=== PATIENT | male | born 1960 | race Caucasian/White ===

== ENCOUNTER 2021-11-14 14:29 | Emergency (ER) | payer OTHER, SELFPAY ==
[2021-11-14 14:46] VITALS: BP 142/90; PULSE 71; RESP 18; TEMP 37.1; O2SAT 95; BMI 33.5
--- NOTE | 2021-11-14 14:51 | HMH.EDUTC ---
[facility] [place] Disposition Clinical Impression: Poison sachi Disposition: Home, Self-Care Condition on Discharge: Good Instructions: DI for Poison Sachi Allergy Additional Instructions: avoid contact with the offending substance. Don't start the oral steroids until tomorrow. Don't put the topical steroids (triamcinolone) on your face or your groin. Follow up with your regular doctor. GO TO THE ER FOR ANY WORSENING SYMPTOMS OR CONCERNS Prescriptions: methylPREDNISolone [Medrol] 4 mg PO DIRECTED 6 Days #21 packet Transmission Status: Received by [facility] #[id number] Triamcinolone Acetonide 1 applicatio TP TIDP PRN 7 Days #1 gm PRN Reason: Itching Transmission Status: Received by [facility] #[id number] Referrals: Provider,Referral, [Primary Care Provider] - Time of Disposition: 15:26 Medical Decision Making - Medical Records Medical records reviewed: No: I reviewed the patient's medical records. - Ritchie Inquiry Pt receiving controlled substance: No Vital Signs: 11/14/21 14:46 11/14/21 15:52 Temperature 98.8 F 98.5 F Temperature Source Oral Oral Pulse Rate 70 Pulse Rate [Radial] 71 Respiratory Rate 18 18 Blood Pressure 123/79 Blood Pressure [Right Arm] 142/90 H Blood Pressure Mean [Right Arm] 107 Blood Pressure Source [Right Arm] Automatic Cuff Blood Pressure Position Standing Blood Pressure Position [Right Arm] Sitting 02 Sat by Pulse Oximetry 95 Oxygen Delivery Method Room Air Room Air Orders (Tests/Meds): ED MEDICATIONS Discontinued Medications Generic Name Dose Route Start Last Admin Trade Name Freq PRN Reason Stop Dose Admin Methylprednisolone Sodium Succinate 125 mg 11/14/21 15:22 11/14/21 15:26 Methylprednisolone Sod Succ 125mg Vial IM 11/14/21 15:23 125 mg ONCE ONE Administration [facility] [place] HPI - General Stated complaint: poison sachi Time Seen by Provider: 11/14/21 14:51 Mode of Arrival: Ambulatory Source of Information: Patient Limitations: No Limitations Description of Symptoms (Recalled from Triage Doc. by RN): RASH ON ARMS AND LEGS FOR 2 WEEKS HEENT Symptoms (Recalled from RN notes): No Resp Symptoms (Recalled from RN notes): No Skin Symptoms (Recalled from RN notes): Yes MS Symptoms (Recalled from RN notes): No Functional Status (Recalled from RN notes): N/A - History of Present Illness Provider Complaint: For the past 2 weeks he has had a rash on his legs, arms and chest. He was exposed to covid-19 before his symptoms started. He has tried otc medications with not much relief. - Related Data Previous Rx's Medication Instructions Recorded Triamcinolone Acetonide 1 applicatio TP TIDP PRN 7 Days #1 11/14/21 gm methylPREDNISolone [Medrol] 4 mg PO DIRECTED 6 Days #21 11/14/21 packet Allergies Allergy/AdvReac Type Severity Reaction Status Date / Time No Known Allergies Allergy Verified 11/14/21 15:20 - Worker's Comp Is this a Worker's Comp case?: No [facility] History - Hepatitis A Screen Attestation statement:: This patient has been screened for Hepatitis A risk factors. I have reviewed the patient's past medical history: Yes ROS Obtained: Yes All systems reviewed & no additional complaints - Constitutional Constitutional: Denies chills, Denies fever(s) - Eyes Eyes: Denies eye discharge, Denies itchy eyes - ENT Ears, Nose, Mouth, and Throat: Denies sore throat, Denies throat swelling - Cardiovascular Cardiovascular: Denies chest pain - Respiratory Respiratory: Denies chest congestion, Denies cough - Musculoskeletal Musculoskeletal: Denies joint pain - Integumentary/Breasts Skin/Breast: Reports as per HPI, Reports rash - Neurologic Neurologic: Denies tingling/numbness/burning sensations Physical Exam - General General appearance: alert, in no apparent distress - Head Head exam: atraumatic, normocephalic, normal inspection - Eye Eye exam: Present: normal appearance, PERRL
[2021-11-14 15:52] VITALS: BP 123/79; PULSE 70; RESP 18; TEMP 36.9; O2SAT 98
== END 2021-11-14 15:57 | disposition home or self-care (01) ==
PROVIDERS: Emergency Provider Nurse Practitioner Family
DX: L23.7 Allergic contact dermatitis due to plants, except food (principal)
CPT/HCPCS: 96372; 99212; G0463

== ENCOUNTER 2022-05-23 22:54 | Emergency (ER) | payer MEDICAID, SELFPAY ==
[2022-05-23 23:06] VITALS: BP 151/92; PULSE 72; RESP 18; TEMP 36.8; O2SAT 98; BMI 32.4
[2022-05-23 23:30] VITALS: BP 147/94; PULSE 65; O2SAT 100
--- NOTE | 2022-05-23 23:32 | XR_ITS ---
PROCEDURE INFORMATION: Exam: XR Lumbosacral Spine Exam date and time: 05/23/2022 11:29 PM Age: 61 years old Clinical indication: Low back pain TECHNIQUE: Imaging protocol: Radiologic exam of the lumbosacral spine. Views: 2 or 3 views. COMPARISON: No relevant prior studies available. FINDINGS: Bones/joints: Chronic fracture of T12. At L4-L5 there is disc height narrowing, endplate sclerosis. Facet joint arthropathy. No acute fracture or malalignment. Soft tissues: Unremarkable. Other findings: Arthrosclerotic disease. IMPRESSION: No acute findings. Degenerative changes.
--- NOTE | 2022-05-23 23:43 | PC.NURSE ---
pt back in room
--- NOTE | 2022-05-23 23:43 | HMH.EDGENADL ---
Discharge Plan Disposition Patient Disposition: Home, Self-Care Condition: Good Prescriptions Prescriptions: New cyclobenzaprine 10 mg tablet 10 mg PO HS PRN (Reason: muscle spasm) Qty: 7 0RF Referrals Follow up/Referrals: Siobhan De La Vega PA [Primary Care Provider] - See instructions Activity Restrictions/Add. Instructions Additional Instructions/Restrictions: Medication as directed. PCP in 1 to 2 days. Return to ER for fever, chest pain, shortness of breath Clinical Impressions Clinical Impression: Strain of lumbar region Instructions Patient Instructions: DI for Low Back Pain Discharge ED Provider: Josh Finn General Adult HPI General Chief complaint: Back Pain/Injury Stated complaint: ao 05/09 fall, back pain. lac right hand 05/19 Time Seen by Provider: 05/23/22 23:18 Mode of Arrival: Ambulatory Source of Information: Patient Limitations: No Limitations Description of Symptoms (Recalled from ER Triage Doc. by RN): Pt states that he fell two weeks ago while at a trampoline park while jumping on a trampoline. Patient states that when he fell he hit his lower back and head and has had lower back pain since then. Pt also has a laceration on his right hand but states that it is getting better. Denies any fever. History of Present Illness HPI narrative: 61yo M presents the emergency department with complaint of low back pain ongoing for 2 weeks. Reports he was at a trampoline park when he fell and struck his back and the back of his head. Did not seek medical care at that time. He reports he then fell approximately 1 week later while at work and reinjured his back. Reports he feels well sitting up but when he attempts to lie down to sleep at night, he has significant pain. Reports he is unable to get out of bed without assistance. Denies previous back injury. Has been taking [id number] Motrin 800 mg with no improvement. Patient then states he also has not had a bowel movement in 3 weeks and this is atypical for him. reports he is still eating. Reports he is passing gas. Related Data Previous Rx's Medication Instructions Recorded cyclobenzaprine 10 mg tablet 10 mg PO HS PRN muscle spasm #7 05/24/22 tabs Allergies Allergy/AdvReac Type Severity Reaction Status Date / Time No Known Allergies Allergy Verified 05/23/22 23:04 [facility] Disclaimer: The information contained in this section may have been updated after the patient was seen, as this information can be updated by other users. Social History Smoking Status: Current every day smoker alcohol intake: never current occupational status: employed Travel in the last 8 weeks: Inside the [place] ROS Obtained: Yes Systems reviewed as appropriate & no additional complaints except as documented Physical Exam General General appearance: alert and in no apparent distress Head Head exam: atraumatic Neck Neck exam: Present normal inspection, full ROM and trachea midline Respiratory Respiratory exam: Absent respiratory distress Cardiovascular Cardiovascular exam: Present regular rate Abdominal Exam Abdominal exam: Present soft; Absent distention or tenderness Extremities Exam Extremities exam: Present full ROM; Absent tenderness Back Exam Back exam: Present normal inspection and tenderness Back 1 view image: 1. Neurological Exam Neurological exam: Present alert, oriented X3 and CN II-XII intact Psychiatric Psychiatric exam: Present normal affect and normal mood Skin Skin exam: Present warm, dry and intact Medical Decision Making Medical Records Medical records reviewed: Yes I reviewed the patient's medical records. Ritchie Inquiry Pt receiving controlled substance: No Ritchie was queried for this patient: No Vital Signs: 05/23/22 23:06 05/23/22 23:30 Temperature 98.2 F Temperature Source Oral Pulse Rate 65 Pulse Rate [Apical] 72 Respi
--- NOTE | 2022-05-23 23:43 | PC.NURSE ---
pt back from rad
[2022-05-24 00:21] VITALS: BP 145/90; PULSE 65; RESP 18; TEMP 36.6; O2SAT 99
== END 2022-05-24 00:33 | disposition home or self-care (01) ==
PROVIDERS: Emergency Provider Family Medicine; PCP Physician Assistant
DX: S39.012A Strain of muscle, fascia and tendon of lower back, initial encounter (principal); S61.411A Laceration without foreign body of right hand, initial encounter; W19.XXXA Unspecified fall, initial encounter; F17.210 Nicotine dependence, cigarettes, uncomplicated
CPT/HCPCS: 72100; 99283; 99284

== ENCOUNTER → 2022-06-06 10:47 | Outpatient (CLI) | payer MEDICAID, SELFPAY ==
[2022-06-10 23:12] LABS: Hep A Ab, IgM NEGATIVE; Hepatitis B Core Antibody IgM NEGATIVE; Hepatitis B Surface Antigen NEGATIVE; Hepatitis C Antibody <0.1
== END ==
PROVIDERS: PCP Physician Assistant; Visit Provider Physician Assistant
DX: Z79.899 Other long term (current) drug therapy (principal)
CPT/HCPCS: 36415; 80074

== ENCOUNTER → 2022-06-11 15:21 | Outpatient (CLI) | payer MEDICAID, SELFPAY ==
--- NOTE | 2022-06-11 15:21 | MR_ITS ---
PROCEDURE INFORMATION: Exam: MR Lumbar Spine Without Contrast Exam date and time: 06/11/2022 4:19 PM Age: 61 years old Clinical indication: Low back pain TECHNIQUE: Imaging protocol: Magnetic resonance imaging of the lumbar spine without contrast. COMPARISON: CR Lumbar spine 05/23/2022 11:29 PM FINDINGS: Bones/joints: Osseous alignment is normal. No vertebral body compression Spinal cord: Visualized cord, conus medullaris and cauda equina are unremarkable without compression. L1-L2: At L1-L2 there is disc desiccation with mild disc space narrowing but no significant disc bulge or spinal stenosis L2-L3: At L2-L3, there is disc desiccation with mild diffuse disc bulge, mild facet arthropathy and ligamentum flavum hypertrophy producing mild central canal stenosis and mild bilateral neural foramen narrowing L3-L4: At L3-L4, there is disc desiccation with diffuse right eccentric disc bulge, bilateral facet arthropathy and ligamentum flavum hypertrophy producing severe central canal stenosis and moderate bilateral neural foramen narrowing L4-L5: At L4-L5, there is disc desiccation with significant disc space narrowing, diffuse right eccentric disc bulge and mild ligamentum flavum hypertrophy producing moderate central canal stenosis and moderate bilateral neural foramen narrowing L5-S1: At L5-S1, there is disc desiccation with diffuse disc bulge producing mild central canal stenosis and moderate bilateral neural foramen narrowing Soft tissues: Unremarkable. Kidneys and ureters: 3 cm simple appearing left renal cortical cysts noted. IMPRESSION: Overall moderate multilevel degenerative disc disease and associated spinal stenosis with central canal stenosis most severe at the L3-L4 disc level accentuated by bilateral facet arthropathy. No acute abnormality evident
== END ==
PROVIDERS: PCP Physician Assistant; Visit Provider Physician Assistant
DX: M54.9 Dorsalgia, unspecified (principal); M54.50 Low back pain, unspecified
CPT/HCPCS: 72148; 76376

== ENCOUNTER → 2022-06-26 07:49 | Outpatient (CLI) | payer MEDICAID, SELFPAY ==
--- NOTE | 2022-06-26 07:49 | US_ITS ---
FINAL REPORT TECHNIQUE: Ultrasound images of the abdominal aorta were obtained. CLINICAL HISTORY: back pain when supine, CAD COMPARISON: None FINDINGS: ULTRASOUND OF THE ABDOMINAL AORTA The aorta measures up to 2.5 millimeters. The bifurcation is normal. IMPRESSION: No evidence of abdominal aortic aneurysm. Reviewed, Interpreted and Dictated by Frances Ngo MD Transcribed by Ciara Vega Authenticated and [facility]
== END ==
PROVIDERS: PCP Physician Assistant; Visit Provider Physician Assistant
DX: M54.9 Dorsalgia, unspecified (principal)
CPT/HCPCS: 76705

== ENCOUNTER → 2022-07-07 14:30 | Outpatient (CLI) | payer MEDICAID, SELFPAY ==
[2022-07-09 14:25] LABS: Testosterone,Total 428 ng/dL (264-916)
== END ==
PROVIDERS: PCP Physician Assistant; Visit Provider Physician Assistant
DX: M54.50 Low back pain, unspecified (principal)
CPT/HCPCS: 36415; 84403

== ENCOUNTER → 2022-09-08 14:03 | Outpatient (CLI) | payer MEDICAID, SELFPAY ==
[2022-09-08 15:00] LABS: Basophils % 0.3 % (0.1-2.0); Eosinophils # 0.1 K/mm3 (0.0-0.4); Eosinophils % 1.1 % (0.1-12.0); Hematocrit 42.3 % (42.0-52.0); Hemoglobin 13.4 g/dL (14.1-18.0); Lymphocytes # 1.7 K/mm3 (0.7-4.5); Lymphocytes % 17.9 % (10-50); Mean Corpuscular HGB Conc 31.6 g/dL (31.8-35.4); Mean Corpuscular Hemoglobin 28.3 pg (27.0-31.2); Mean Corpuscular Volume 89.7 fl (80-94); Mean Platelet Volume 9.1 fl (7.4-10.4); Monocytes # 0.5 K/mm3 (0.1-1.0); Monocytes % 4.7 % (1.7-9.3); Neutrophils # 7.4 K/mm3 (1.8-7.8); Platelet Count 207 K/mm3 (142-424); Red Blood Count 4.72 M/mm3 (4.60-6.20); Red Cell Distribution Width 15.1 % (11.5-17.5); White Blood Count 9.7 K/mm3 (4.8-10.8)
[2022-09-08 16:05] LABS: Chloride 96 mmol/L (98-107); Potassium 4.2 mmoL/L (3.5-5.1); Sodium 137 mmol/L (136-145)
[2022-09-08 16:07] LABS: Alanine Aminotransferase 20 U/L (12-78); Aspartate Amino Transferase 36 U/L (17-59); Blood Urea Nitrogen 17 mg/dl (9-20); Estimated Glomerular Filt Rate 75 ml/min (>60); GFR (African American) 91 ML/MIN (>60)
[2022-09-08 16:08] LABS: Albumin Level 3.8 g/dl (3.5-5.0); Albumin/Globulin Ratio 1.4 (1.1-1.8); Alkaline Phosphatase 66 U/L (38-126); Anion Gap 13.2 mEq/L (5-15); Bilirubin,Total 0.9 mg/dl (0.2-1.3); Carbon Dioxide 32 mmol/L (22.0-30.0); Cholesterol 111 mg/dl (140-200); Globulin 2.7 g/dL (1.3-3.2); Iron 92 ug/dL (49-181); Phosphorous 3.3 mg/dl (2.5-4.5); Total Protein,Serum 6.5 g/dl (6.3-8.2); Triglycerides 92 mg/dl (30-150); VLDL Cholesterol 18 mg/dL (0-40)
[2022-09-08 16:09] LABS: Calcium 9.6 mg/dl (8.4-10.2); Chol/HDL Ratio 2.5 (1-3.5); Glucose 104 mg/dl (74-100); HDL Cholesterol 44 mg/dl (40-60); Magnesium 1.6 mg/dl (1.6-2.3)
[2022-09-08 16:18] LABS: Total Iron Binding Capacity 272 ug/dL (261-462)
[2022-09-08 16:20] LABS: Direct LDL Cholesterol 56.43 mg/dL (100-129)
[2022-09-08 16:40] LABS: Thyroid Stimulating Hormone 0.99 uIU/mL (0.465-4.68)
[2022-09-08 16:44] LABS: Ferritin 41.3 ng/ml (17.9-464)
[2022-09-08 18:07] LABS: Folate > 20.00 ng/mL
[2022-09-13 18:11] LABS: Vitamin B1 146.9 nmol/L (66.5-200.0)
[2022-09-14 11:08] LABS: Vitamin E Alpha Tocopherol 11.3 mg/L (9.0-29.0); Vitamin E Gamma Tocopherol 0.9 mg/L (0.5-4.9)
[2022-10-12 16:13] LABS: Methylmalonic Acid 105 nmol/L (0-378)
== END ==
PROVIDERS: PCP Physician Assistant; Visit Provider Nurse Practitioner Family
DX: Z90.3 Acquired absence of stomach [part of] (principal)
CPT/HCPCS: 36415; 80053; 80061; 82306; 82728; 82746; 83036; 83540; 83550; 83735; 83921; 84100; 84425; 84443; 84446; 84590; 85025

== ENCOUNTER 2023-03-26 18:44 | Emergency (ER) | payer MEDICAID, SELFPAY ==
[2023-03-26 19:20] VITALS: BP 134/85; PULSE 69; RESP 16; TEMP 36.8; O2SAT 97; BMI 29.2
--- NOTE | 2023-03-26 19:21 | HMH.EDGENADL ---
Discharge Plan Disposition Patient Disposition: Home, Self-Care Condition: Good Prescriptions Prescriptions: New ketorolac 10 mg tablet 10 mg PO Q8H 4 Days Qty: 12 0RF No Action aspirin [Adult Aspirin Regimen] 81 mg tablet,delayed release (DR/EC) 81 mg PO DAILY Qty: 90 0RF ibuprofen 800 mg tablet 800 mg PO TID Qty: 30 0RF Mediplast Zlny-Eowggq-Jvsy 40 % adhesive patch,medicated 1 applic topical Q48H Qty: 25 0RF Ozempic 0.25 mg or 0.5 mg (2 mg/3 mL) pen injector 0.25 mg SQ WEEKLY Qty: 3 2RF Rx Instructions: for 4 weeks (DME) blood-glucose meter [Accu-Chek Guide Glucose Meter] Misc See Rx Instructions .Route Qty: 1 3RF Rx Instructions: FS BID (DME) lancets [Accu-Chek Softclix Lancets] Misc See Rx Instructions .Route Qty: 200 3RF Rx Instructions: FS BID (DME) Accu-Chek Guide test strips Strip See Rx Instructions .Route Qty: 100 1RF Rx Instructions: FS Bid tadalafil [Cialis] 10 mg tablet 10 mg PO DAILY PRN (Reason: sexual activity) Qty: 60 2RF Rx Instructions: administer approximately 30min before sexual activity; do not use more than 1 dose per 24hrs cyclobenzaprine 10 mg tablet See Rx Instructions .ROUTE .COMPLEX Qty: 30 0RF Dose Instruction: TAKE 1 TABLET BY MOUTH EVERY NIGHT AT BEDTIME NEEDED FOR MUSCLE SPASM Rx Instructions: TAKE 1 TABLET BY MOUTH EVERY NIGHT AT BEDTIME NEEDED FOR MUSCLE SPASM lisinopril 40 mg tablet See Rx Instructions .ROUTE .COMPLEX Qty: 90 0RF Dose Instruction: TAKE 1 TABLET BY MOUTH ONCE DAILY Rx Instructions: TAKE 1 TABLET BY MOUTH ONCE DAILY amlodipine 10 mg tablet See Rx Instructions .ROUTE .COMPLEX Qty: 90 0RF Dose Instruction: TAKE 1 TABLET BY MOUTH DAILY Rx Instructions: TAKE 1 TABLET BY MOUTH DAILY metformin 500 mg tablet,ER roopa.retention 24 hr See Rx Instructions .ROUTE .COMPLEX Qty: 30 1RF Dose Instruction: TAKE 1 TABLET BY MOUTH EVERY DAY Rx Instructions: TAKE 1 TABLET BY MOUTH EVERY DAY atorvastatin 80 mg tablet See Rx Instructions .ROUTE .COMPLEX Qty: 90 0RF Dose Instruction: TAKE 1 TABLET BY MOUTH DAILY Rx Instructions: TAKE 1 TABLET BY MOUTH DAILY Referrals Follow up/Referrals: Siobhan De La Vega PA [Primary Care Provider] - See instructions Clinical Impressions Clinical Impression: Rib pain on left side Instructions Patient Instructions: DI for Rib Contusion Discharge ED Provider: Nisa Burton General Adult HPI General Chief complaint: PAIN Stated complaint: AO03/24 RT side rib inj Time Seen by Provider: 03/26/23 19:18 History of Present Illness HPI narrative: Patient has a PMHx significant for hypertension who presents to the ED with complaints of left-sided rib pain. Patient notes that a few days ago, he was using a strapping bar when the strapping bar kicked back and hit him on the left side of his chest. Patient notes that since then, he has been having progressively worsening left-sided rib pain with radiation to the back. Patient notes the pain is worse with range of motion. Patient denies any chest pain or shortness of breath. Related Data Previous Rx's Medication Instructions Recorded aspirin 81 mg tablet,delayed 81 mg PO DAILY #90 tabs 06/03/22 release (Adult Aspirin Regimen) ibuprofen 800 mg tablet 800 mg PO TID #30 tabs 06/03/22 blood-glucose meter (Accu-Chek #1 ea 06/26/22 Guide Glucose Meter) lancets (Accu-Chek Softclix #200 ea 06/26/22 Lancets) blood sugar diagnostic (Accu-Chek #100 ea 06/30/22 Guide test strips) tadalafil 10 mg tablet (Cialis) 10 mg PO DAILY PRN sexual activity 09/01/22 #60 tabs cyclobenzaprine 10 mg tablet See Rx Instructions .Route 11/07/22 .COMPLEX #30 tabs salicylic acid 40 % topical patch 1 applic topical Q48H #25 ea 11/13/22 (Mediplast Pocb-Wwkpib-Bxzi Remover) semaglutide 0.25 mg or 0.5 mg (2 0.25 mg (
--- NOTE | 2023-03-26 19:32 | CT_ITS ---
PROCEDURE INFORMATION: Exam: CT Chest Without Contrast; Diagnostic Exam date and time: 03/26/2023 7:45 PM Age: 62 years old Clinical indication: Injury or trauma; Other: Hit by a pipe; Blunt trauma (contusions or hematomas); Additional info: Left rib pain TECHNIQUE: Imaging protocol: Diagnostic computed tomography of the chest without contrast. Radiation optimization: All CT scans at this facility use at least one of these dose optimization techniques: automated exposure control; mA and/or kV adjustment per patient size (includes targeted exams where dose is matched to clinical indication); or iterative reconstruction. REPORTING DATA: Count of CT and Cardiac NM exams in prior 12 months: This patient has received 0 known CTs and 0 known cardiac nuclear medicine studies in the 12 months prior to the current study. COMPARISON: US ABD. AORTA SCREENING 06/26/2022 8:29 AM FINDINGS: Lungs: Unremarkable. No consolidation. No masses. Pleural spaces: Unremarkable. No pneumothorax. No pleural effusion. Heart: Unremarkable. No cardiomegaly. No pericardial effusion. Lymph nodes: Unremarkable. No enlarged lymph nodes. Vasculature: Unremarkable. No aortic aneurysm. Liver: Innumerable too small to characterize hypodense liver lesions some reflect cysts but some are technically indeterminate. Adrenal glands: Tiny left adrenal adenoma. Bones/joints: Unremarkable. No acute fracture. Soft tissues: Unremarkable. IMPRESSION: No acute findings.
[2023-03-26 21:48] VITALS: BP 117/78; PULSE 90; RESP 16; TEMP 36.8; O2SAT 99
== END 2023-03-26 21:54 | disposition home or self-care (01) ==
PROVIDERS: Emergency Provider Emergency Medicine; PCP Physician Assistant
DX: R07.81 Pleurodynia (principal); I10 Essential (primary) hypertension; F17.210 Nicotine dependence, cigarettes, uncomplicated; E78.5 Hyperlipidemia, unspecified; M06.9 Rheumatoid arthritis, unspecified; W20.8XXA Other cause of strike by thrown, projected or falling object, initial encounter
CPT/HCPCS: 71250; 96372; 99284

== ENCOUNTER 2023-07-14 21:35 | Outpatient (CLI) | payer MEDICAID, SELFPAY ==
[2023-07-14 19:51] LABS: Basophils # 0.1 K/mm3 (0-0.2); Basophils % 0.5 % (0.1-2.0); Eosinophils # 0.2 K/mm3 (0.0-0.4); Eosinophils % 2.2 % (0.1-12.0); Hematocrit 43.6 % (42.0-52.0); Hemoglobin 14.3 g/dL (14.1-18.0); Lymphocytes # 1.5 K/mm3 (0.7-4.5); Lymphocytes % 14.5 % (10-50); Mean Corpuscular HGB Conc 32.7 g/dL (31.8-35.4); Mean Corpuscular Hemoglobin 29.8 pg (27.0-31.2); Mean Platelet Volume 11.1 fl (7.4-10.4); Monocytes # 0.5 K/mm3 (0.1-1.0); Monocytes % 4.9 % (1.7-9.3); Neutrophils # 7.8 K/mm3 (1.8-7.8); Platelet Count 228 K/mm3 (142-424); Red Blood Count 4.79 M/mm3 (4.60-6.20); Red Cell Distribution Width 15.7 % (11.5-17.5)
[2023-07-14 19:57] LABS: Chloride 103 mmol/L (98-107)
[2023-07-14 19:58] LABS: Potassium 3.9 mmoL/L (3.5-5.1); Sodium 138 mmol/L (136-145)
[2023-07-14 20:00] LABS: Alanine Aminotransferase 18 U/L (12-78); Alkaline Phosphatase 103 U/L (38-126); Aspartate Amino Transferase 41 U/L (17-59); Bilirubin,Total 1.1 mg/dl (0.2-1.3); Blood Urea Nitrogen 11 mg/dl (9-20); Estimated Glomerular Filt Rate 75 ml/min (>60); GFR (African American) 91 ML/MIN (>60)
[2023-07-14 20:01] LABS: Albumin Level 4.3 g/dl (3.5-5.0); Albumin/Globulin Ratio 1.5 (1.1-1.8); Anion Gap 8.9 mEq/L (5-15); Calcium 9.5 mg/dl (8.4-10.2); Carbon Dioxide 30 mmol/L (22.0-30.0); Chol/HDL Ratio 2.7 (1-3.5); Cholesterol 140 mg/dl (140-200); Globulin 2.8 g/dL (1.3-3.2); Glucose 107 mg/dl (74-100); HDL Cholesterol 51 mg/dl (40-60); Total Protein,Serum 7.1 g/dl (6.3-8.2); Triglycerides 79 mg/dl (30-150); VLDL Cholesterol 16 mg/dL (0-40)
[2023-07-14 20:13] LABS: 25-OH Vitamin D, Total 70.7 ng/mL (30-100)
[2023-07-14 20:14] LABS: Hemoglobin A1C 5.8 % (4.0-6.0)
[2023-07-14 20:20] LABS: Direct LDL Cholesterol 59.06 mg/dL (100-129)
[2023-07-14 20:32] LABS: Thyroid Stimulating Hormone 1.48 uIU/mL (0.465-4.68)
[2023-07-14 21:37] LABS: Prostate Specific Ag Screen 0.5 ng/ml (0.0-4.0)
== END 2023-07-14 23:59 ==
LOC: LAB.DROPOF 21:35
PROVIDERS: PCP Physician Assistant; Visit Provider Physician Assistant
DX: E55.9 Vitamin D deficiency, unspecified (principal); E11.69 Type 2 diabetes mellitus with other specified complication; I25.10 Atherosclerotic heart disease of native coronary artery without angina pectoris; I10 Essential (primary) hypertension; Z79.84 Long term (current) use of oral hypoglycemic drugs; Z12.5 Encounter for screening for malignant neoplasm of prostate
CPT/HCPCS: 80053; 80061; 82306; 83036; 84443; 85025; G0103

== ENCOUNTER 2023-08-10 09:14 | Outpatient (CLI) | payer MEDICAID, SELFPAY ==
--- NOTE | 2023-08-10 09:19 | XR_ITS ---
FINAL REPORT TECHNIQUE: Chest PA & Lateral CLINICAL HISTORY: Acute cough FINDINGS: 2 views of the chest were performed. The heart size is normal. The mediastinum is within normal limits. There are mild patchy airspace opacities in the medial right lung base consistent with a small focus of pneumonia. The left lung is clear. There are no pleural effusions. There is no pneumothorax. The bony thorax appears intact. IMPRESSION: Pneumonia in the medial right lung base. Reviewed, Interpreted and Dictated by Jose Woo MD Transcribed by Alaina Arauz Authenticated and [facility]
== END 2023-08-10 23:59 ==
LOC: RAD 09:15
PROVIDERS: PCP Physician Assistant; Visit Provider Family Medicine
DX: J18.9 Pneumonia, unspecified organism (principal)
CPT/HCPCS: 71046

== ENCOUNTER 2023-08-21 10:30 | Outpatient (CLI) | payer MEDICAID, SELFPAY ==
--- NOTE | 2023-08-21 10:32 | XR_ITS ---
FINAL REPORT TECHNIQUE: Chest PA & Lateral CLINICAL HISTORY: pneumonia states dx with pneumonia approx a week ago, symptoms not improving COMPARISON: 08/10/2023 FINDINGS: 2 views of the chest were performed. The heart size is normal. The mediastinum is within normal limits. There is mild atelectasis at the right lung base. There are no pleural effusions. There is no pneumothorax. The bony thorax appears intact. IMPRESSION: Mild atelectasis right lung base. Reviewed, Interpreted and Dictated by Jose Woo MD Transcribed by Ciara Vega Authenticated and [facility]
== END 2023-08-21 23:59 | disposition home or self-care (01) ==
LOC: RAD 10:30
PROVIDERS: PCP Physician Assistant; Visit Provider Family Medicine
DX: J18.9 Pneumonia, unspecified organism (principal)
CPT/HCPCS: 71046

== ENCOUNTER 2023-08-21 11:31 | Emergency (ER) | payer MEDICAID, SELFPAY ==
[2023-08-21 11:33] VITALS: BP 168/96; PULSE 78; RESP 15; TEMP 37.1; O2SAT 98; BMI 25.8
--- NOTE | 2023-08-21 11:48 | CT_ITS ---
FINAL REPORT TECHNIQUE: Routine axial images were obtained from the lung apices to below the diaphragm following IV contrast administration. Individualized dose reduction techniques using automated exposure control or adjustment of the mA and/or kV according to the patient size were employed. CLINICAL HISTORY: cough, fluid on lungs COMPARISON: 03/26/2023 FINDINGS: There is no significant mediastinal mass or adenopathy. No pleural or pericardial effusion is seen. There are dense coronary artery calcifications. There are minimal chronic changes in the lung bases. Limited images of the upper abdomen demonstrate multiple benign-appearing cysts seen throughout the liver measuring up to 2.3 cm in greatest dimension. There is a small sliding-type hiatal hernia. The pancreas and adrenals appear unremarkable. IMPRESSION: Chronic changes in the lung bases. Multitude of cysts throughout the liver. Reviewed, Interpreted and Dictated by Jose Woo MD Transcribed by Ciara Vega Authenticated and [facility]
--- NOTE | 2023-08-21 11:49 | HMH.EDGENADL ---
Discharge Plan Disposition Patient Disposition: Home, Self-Care Condition: Fair Prescriptions Prescriptions: New albuterol sulfate 90 mcg/actuation HFA aerosol inhaler 2 inh inhalation Q4H PRN (Reason: shortness of breath or wheezing) Qty: 6.7 0RF No Action aspirin [Adult Aspirin Regimen] 81 mg tablet,delayed release (DR/EC) 81 mg PO DAILY Qty: 90 0RF ibuprofen 800 mg tablet 800 mg PO TID Qty: 30 0RF Ozempic 0.25 mg or 0.5 mg (2 mg/3 mL) pen injector 0.25 mg SQ WEEKLY Qty: 3 2RF Rx Instructions: for 4 weeks vitamin D3-vit K1-vit MK4-MK7 50-500-1,500 mcg capsule PO tadalafil 5 mg tablet 5 mg PO DAILY Patient Comments: TAKE 1 TABLET BY MOUTH ONCE DAILY pantoprazole [Protonix] 20 mg tablet,delayed release (DR/EC) 20 mg PO DAILY Qty: 30 2RF (DME) blood-glucose meter [Accu-Chek Guide Glucose Meter] Misc See Rx Instructions .Route Qty: 1 3RF Rx Instructions: FS BID (DME) lancets [Accu-Chek Softclix Lancets] Misc See Rx Instructions .Route Qty: 200 3RF Rx Instructions: FS BID (DME) Accu-Chek Guide test strips Strip See Rx Instructions .Route Qty: 100 1RF Rx Instructions: FS Bid lisinopril 40 mg tablet See Rx Instructions .ROUTE .COMPLEX Qty: 90 0RF Dose Instruction: TAKE 1 TABLET BY MOUTH ONCE DAILY Rx Instructions: TAKE 1 TABLET BY MOUTH ONCE DAILY metformin 500 mg tablet,ER roopa.retention 24 hr See Rx Instructions .ROUTE .COMPLEX Qty: 30 1RF Dose Instruction: TAKE 1 TABLET BY MOUTH EVERY DAY Rx Instructions: TAKE 1 TABLET BY MOUTH EVERY DAY atorvastatin 80 mg tablet See Rx Instructions .ROUTE .COMPLEX Qty: 90 0RF Dose Instruction: TAKE 1 TABLET BY MOUTH DAILY Rx Instructions: TAKE 1 TABLET BY MOUTH DAILY amlodipine 10 mg tablet See Rx Instructions .ROUTE .COMPLEX Qty: 90 0RF Dose Instruction: TAKE 1 TABLET BY MOUTH DAILY Rx Instructions: TAKE 1 TABLET BY MOUTH DAILY Referrals Follow up/Referrals: Siobhan De La Vega PA [Primary Care Provider] - See instructions Jeremy Mcdaniels MD [Physician] - See instructions Activity Restrictions/Add. Instructions Additional Instructions/Restrictions: You were seen in the ED today due to cough and difficulty breathing. Labs and CT scan were reassuring. Prescription for albuterol inhaler has been provided. Please follow-up with primary care and pulmonology. Return to the ED if symptoms worsen or if new concerning symptoms arise. Thank you. Clinical Impressions Clinical Impression: Cough Qualifiers: Cough type: subacute Qualified Code(s): R05.2 - Subacute cough Discharge ED Provider: Derick Higgins General Adult HPI General Chief complaint: Upper Respiratory Infection Stated complaint: Pain in lungs, sent by Siobhan De La Vega Time Seen by Provider: 08/21/23 11:47 Mode of Arrival: Ambulatory Source of Information: Patient Limitations: No Limitations Description of Symptoms (Recalled from ER Triage Doc. by RN): pt presents to ED from primary care office. mahamed from doctor office called to give report prior to pt arriving. pt reports that he has had cough, wheezing for the past 3 weeks. symptoms have gotten better then worse again. pt has had rounds of different abx with no relief. History of Present Illness HPI narrative: Patient is a 62-year-old male with history of HTN, HLD, diabetes, CAD who presents due to shortness of breath. Patient reports for the past 3 weeks he has had intermittent shortness of breath and difficulty breathing. States he has been coughing, particularly when he lays flat. He has had to prop himself up with pillows to sleep. States cough has been intermittently productive of phlegm. Patient states he has also had some wheezing. Reports he has followed with his primary care provider and has been treated with antibiotics for pneumonia however his condition has persisted. He denies any chest pain. He denies any history of similar symptoms. Related Data Home Medications Medication Instructions Recorded Confirmed tadalafil 5 mg tablet 5 mg PO DAILY 07/14/23 08/21/23 vit D3 50 mcg-vitamin K1 500 cap PO 07/14/23 08/21/23 mcg-MK4 1,500 mcg-MK7 180 mcg capsule Previous Rx's Medication Instructions Recorded aspirin 81 mg tablet,delayed 81 mg PO DAILY #90 tabs 06/03/22 release (Adult Aspirin Regimen) ibuprofen 800 mg tablet 800 mg PO TID #30 tabs 06/03/22 blood-glucose meter (Accu-Chek #1 ea 06/26/22 Guide Glucose Meter) lancets (Accu-Chek Softclix #200 ea 06/26/22 Lancets) blood sugar diagnostic (Accu-Chek #100 ea 06/30/22 Guide test strips) semaglutide 0.25 mg or 0.5 mg (2 0.25 mg (0.368 mL) SQ WEEKLY #3 mL 11/13/22 mg/3 mL) subcutaneous pen injector (Ozempic) lisinopril 40 mg tablet See Rx Instructions .Route 02/04/23 .COMPLEX #90 tabs metformin 500 mg 24 hr See Rx Instructions .Route 02/19/23 tablet,extended release (gastric .COMPLEX #30 tabs retention) atorvastatin 80 mg tablet See Rx Instructions .Route 05/26/23 .COMPLEX #90 tabs amlodipine 10 mg tablet See Rx Instructions .Route 08/17/23 .COMPLEX #90 tabs albuterol sulfate 90 mcg/actuation 2 inh inhalation Q4H PRN shortness 08/21/23 aerosol inhaler of breath or wheezing #6.7 grams pantoprazole 20 mg tablet,delayed 20 mg PO DAILY #30 tabs 08/21/23 release (Protonix) Allergies Allergy/AdvReac Type Severity Reaction Status Date / Time No Known Allergies Allergy Verified 08/21/23 10:50 [facility] Disclaimer: The information contained in this section may have been updated after the patient was seen, as this information can be updated by other users. Medical History Erectile dysfunction Rheumatoid arthritis Fall Back pain Vitamin D deficiency Hyperlipidemia Hypertension Surgical History S/P trigger finger release LAP-BAND surgery status H/O heart artery stent x2 Social History Smoking Status: Current every day smoker alcohol intake: never current occupational status: employed Travel in the last 8 weeks: Inside the [place] ROS Obtained: Yes All systems reviewed & no additional complaints except as documented Respiratory Respiratory: Reports shortness of breath, Reports chest congestion and Reports cough Physical Exam General General appearance: alert and in no apparent distress Head Head exam: atraumatic, normocephalic and normal inspection Eye Eye exam: Present normal appearance, PERRL and EOMI ENT ENT exam: Present normal exam, normal oropharynx, mucous membranes moist, TM's normal bilaterally and normal external ear exam Neck Neck exam: Present normal inspection, full ROM and trachea midline; Absent meningismus or lymphadenopathy Chest Chest inspection: Present normal inspection and symmetric chest wall rise; Absent tenderness Respiratory Respiratory exam: Present wheezes and other (Bilateral inspiratory and expiratory wheezes.); Absent respiratory distress Cardiovascular Cardiovascular exam: Present regular rate and normal rhythm; Absent JVD Abdominal Exam Abdominal exam: Present soft and normal bowel sounds; Absent distention, tenderness or guarding Extremities Exam Extremities exam: Present normal inspection, full ROM and normal capillary refill; Absent calf tenderness Back Exam Back exam: Present normal inspection; Absent tenderness Neurological Exam Neurological exam: Present alert and oriented X3 Psychiatric Psychiatric exam: Present normal affect and normal mood Skin Skin exam: Present warm, dry, intact and normal color Lymphatic Lymphatic Findings: no adenopathy Medical Decision Making Ritchie Inquiry Pt receiving controlled substance: No Vital Signs: 08/21/23 11:33 08/21/23 12:10 08/21/23 13:00 Temperature 98.7 F Temperature Source Oral Pulse Rate 77 73 Pulse Rate [Left Radial] 78 Respiratory Rate 15 Blood Pressure 140/81 144/84 H Blood Pressure [Right Arm] 168/96 H Blood Pressure Mean [Right Arm] 120 02 Sat by Pulse Oximetry 98 100 94 L Oxygen Delivery Method Room Air Lab Data Lab Results 08/21/23 11:38: WBC 14.0 H, RBC 4.64, Hgb 13.6 L, Hct 41.8 L, MCV 90.0, MCH 29.2, MCHC 32.5, RDW 15.9, Plt Count 228, MPV 8.5, Neut % (Auto) 81.7 H, Lymph % (Auto) 12.4, [place] % (Auto) 4.5, Eos % (Auto) 0.9, Baso % (Auto) 0.5, Neut # (Auto) 11.5 H, Lymph # (Auto) 1.8, [place] # (Auto) 0.6, Eos # (Auto) 0.1, Baso # (Auto) 0.1, Sodium 143, Potassium 4.1, Chloride 104, Carbon Dioxide 32 H, Anion Gap 11.1, BUN 19, Creatinine 1.10, Estimated Creat Clear 72, Estimated GFR 67, Est GFR ( Amer) 82, Glucose 125 H, Calcium 9.8, Total Bilirubin 1.2, AST 48, ALT 25, Alkaline Phosphatase 87, NT-Pro-B Natriuret Pep 211 H, Total Protein 7.3, Albumin 4.3, Globulin 3.0, Albumin/Globulin Ratio 1.4, Procalcitonin < 0.030 08/21/23 11:48: VBG pH 7.38, VBG pCO2 49.2, VBG pO2 30.4, VBG HCO3 28.2, VBG Total CO2 29.7 H, VBG O2 Saturation 55.4, VBG Base Excess 3.0 H, VBG Lactic Acid 1.4 08/21/23 11:38 08/21/23 11:38 Orders (Tests/Meds): ED MEDICATIONS Discontinued Medications Generic Name Dose Route Start Last Admin Trade Name Freq PRN Reason Stop Dose Admin Albuterol/Ipratropium 6 ml 08/21/23 11:48 08/21/23 11:56 Ipratropium/Albuterol 3 Ml Neb IH 08/21/23 11:49 6 ml ONCE ONE Administration Iopamidol 75 ml 08/21/23 12:28 08/21/23 12:30 Iopamidol-370 (76%);100ml Bottle IV 08/21/23 12:29 75 ml ONCE ONE Administration Sodium Chloride 10 ml 08/21/23 12:28 08/21/23 12:30 Sodium Chloride 0.9% 10ml Syr (Rad Only) IV 08/21/23 12:29 10 ml ONCE ONE Administration ORDERS Category Date Time Status CT chest w con Stat Cat Scan 08/21/23 11:48 Completed BNP [NT Pro Brain Natriuretic Pep.] Stat Lab 08/21/23 11:38 Completed CBC w/Auto Diff [Complete Blood Count Auto Diff] Stat Lab 08/21/23 11:38 Completed CMP [Comprehensive Metabolic Panel] Stat Lab 08/21/23 11:38 Completed Procalcitonin Stat Lab 08/21/23 11:38 Completed Blood Culture Stat Micro 08/21/23 12:49 Ordered VBG [Venous Blood Gas] Stat RT 08/21/23 11:48 Completed Medical Decision Narrative: In summary, patient is 62-year-old male with history of HTN, HLD, diabetes, CAD, evaluated in the emergency department today due to shortness of breath, cough, wheezing. On arrival, patient is hypertensive, hemodynamically stable, afebrile. On examination, patient has wheezes. Differential diagnosis includes but is not limited to asthma, COPD, other obstructive lung disease, viral infection, bronchitis, pneumonia, heart failure. Patient given DuoNeb treatment x2. Workup initiated including CBC, CMP, VBG, BNP, blood cultures, CT chest with contrast. Labs independently interpreted by me and significant for WBC 14 K, BNP 211. Imaging independently interpreted by me and significant for mild lower lung chronic changes, liver cysts. Patient informed of findings. On reevaluation, wheezes have improved. Patient is resting comfortably and vital signs remain stable. Given reassuring workup, he is appropriate for discharge with outpatient follow-up. Patient states he will follow-up with his primary care. Referral for pulmonology provided. Prescription for albuterol inhaler provided. Patient counseled on home care, given strict return precautions and agreeable to plan. I considered the utility of obtaining viral testing, but decided against this because this would not supervisor records change. I considered the utility of treatment with steroids, but decided against this because they would be of low utility. I considered admitting the patient to the hospital for further workup, and in shared decision-making with patient, decided he is appropriate for outpatient management. Critical Care Critical Care Time Critical Care Time: No
--- NOTE | 2023-08-21 11:52 | PC.NURSE ---
call made to respiratory for VBG blood that is in lab.
[2023-08-21] MEDS: IPRATROPIUM/ALBUTEROL 3 ML NEB 6 ML IH (11:56)
[2023-08-21 12:00] LABS: Lactate Venous 1.4 mmol/L (0.4-2.0); VBG HCO3 28.2 mmol/L (23-30); VBG Oxygen Saturation 55.4 % (50-70); VBG PCO2 49.2 mmol/L (35-51); VBG PH 7.38 mmol/L (7.31-7.41); VBG PO2 30.4 mmol/L (28-40); VBG Total CO2 29.7 mmol/L (23-27)
[2023-08-21 12:03] LABS: Alanine Aminotransferase 25 U/L (12-78); Albumin Level 4.3 g/dl (3.5-5.0); Albumin/Globulin Ratio 1.4 (1.1-1.8); Alkaline Phosphatase 87 U/L (38-126); Anion Gap 11.1 mEq/L (5-15); Aspartate Amino Transferase 48 U/L (17-59); Bilirubin,Total 1.2 mg/dl (0.2-1.3); Blood Urea Nitrogen 19 mg/dl (9-20); Calcium 9.8 mg/dl (8.4-10.2); Carbon Dioxide 32 mmol/L (22.0-30.0); Chloride 104 mmol/L (98-107); Creatinine Clearance Estimated 72 mL/min (50-200); Estimated Glomerular Filt Rate 67 ml/min (>60); GFR (African American) 82 ML/MIN (>60); Glucose 125 mg/dl (74-100); Potassium 4.1 mmoL/L (3.5-5.1); Sodium 143 mmol/L (136-145); Total Protein,Serum 7.3 g/dl (6.3-8.2)
[2023-08-21 12:07] LABS: Basophils # 0.1 K/mm3 (0-0.2); Basophils % 0.5 % (0.1-2.0); Eosinophils # 0.1 K/mm3 (0.0-0.4); Eosinophils % 0.9 % (0.1-12.0); Hematocrit 41.8 % (42.0-52.0); Hemoglobin 13.6 g/dL (14.1-18.0); Lymphocytes # 1.8 K/mm3 (0.7-4.5); Lymphocytes % 12.4 % (10-50); Mean Corpuscular HGB Conc 32.5 g/dL (31.8-35.4); Mean Corpuscular Hemoglobin 29.2 pg (27.0-31.2); Mean Platelet Volume 8.5 fl (7.4-10.4); Monocytes # 0.6 K/mm3 (0.1-1.0); Monocytes % 4.5 % (1.7-9.3); Neutrophils # 11.5 K/mm3 (1.8-7.8); Neutrophils % 81.7 % (37.0-80.0); Platelet Count 228 K/mm3 (142-424); Red Blood Count 4.64 M/mm3 (4.60-6.20); Red Cell Distribution Width 15.9 % (11.5-17.5)
[2023-08-21 12:10] VITALS: BP 140/81; PULSE 77; O2SAT 100
[2023-08-21 12:21] LABS: Procalcitonin < 0.030 ng/mL (0.0-2.0)
[2023-08-21] MEDS: IOPAMIDOL-370 (76%);100ML BOTTLE 75 ML IV (12:30)
[2023-08-21] MEDS: SODIUM CHLORIDE 0.9% 10ML SYR (RAD ONLY) 10 ML IV (12:30)
[2023-08-21 12:31] LABS: NT Pro Brain Natriuretic Pep. 211 pg/mL (0-125)
[2023-08-21 13:00] VITALS: BP 144/84; PULSE 73; O2SAT 94
--- NOTE | 2023-08-21 13:22 | PC.NURSE ---
rounded on pt at this time. pt ambulated to the restroom at this time
[2023-08-21 13:42] VITALS: BP 146/76; PULSE 70; RESP 20; TEMP 37; O2SAT 97
== END 2023-08-21 13:43 | disposition home or self-care (01) ==
PROVIDERS: Emergency Provider Student in an Organized Health Care Education/Training Program; PCP Physician Assistant
DX: R06.02 Shortness of breath (principal); R05.2 Subacute cough; E11.9 Type 2 diabetes mellitus without complications; I11.9 Hypertensive heart disease without heart failure; I25.10 Atherosclerotic heart disease of native coronary artery without angina pectoris; E78.5 Hyperlipidemia, unspecified; Z95.5 Presence of coronary angioplasty implant and graft; Z79.84 Long term (current) use of oral hypoglycemic drugs; Z79.85 Long-term (current) use of injectable non-insulin antidiabetic drugs
CPT/HCPCS: 71260; 80053; 82803; 83880; 84145; 85025; 87040; 99284; Q9967

== ENCOUNTER 2023-09-10 09:14 | Emergency (ER) | payer SELFPAY ==
[2023-09-10 09:15] VITALS: BP 134/90; PULSE 80; RESP 16; TEMP 36.8; O2SAT 99; BMI 28.8
[2023-09-10 09:30] VITALS: BP 126/85; PULSE 77; O2SAT 98
--- NOTE | 2023-09-10 09:47 | HMH.EDGENADL ---
Discharge Plan Disposition Patient Disposition: Home, Self-Care Prescriptions Prescriptions: New prednisone 20 mg tablet 40 mg PO DAILY 5 Days Qty: 10 0RF No Action aspirin [Adult Aspirin Regimen] 81 mg tablet,delayed release (DR/EC) 81 mg PO DAILY Qty: 90 0RF ibuprofen 800 mg tablet 800 mg PO TID Qty: 30 0RF Ozempic 0.25 mg or 0.5 mg (2 mg/3 mL) pen injector 0.25 mg SQ WEEKLY Qty: 3 2RF Rx Instructions: for 4 weeks vitamin D3-vit K1-vit MK4-MK7 50-500-1,500 mcg capsule PO tadalafil 5 mg tablet 5 mg PO DAILY Patient Comments: TAKE 1 TABLET BY MOUTH ONCE DAILY pantoprazole [Protonix] 20 mg tablet,delayed release (DR/EC) 20 mg PO DAILY Qty: 30 2RF Breztri Aerosphere 160-9-4.8 mcg/actuation HFA aerosol inhaler 2 inh inhalation BID Qty: 10.7 2RF (DME) blood-glucose meter [Accu-Chek Guide Glucose Meter] Misc See Rx Instructions .Route Qty: 1 3RF Rx Instructions: FS BID (DME) lancets [Accu-Chek Softclix Lancets] Misc See Rx Instructions .Route Qty: 200 3RF Rx Instructions: FS BID (DME) Accu-Chek Guide test strips Strip See Rx Instructions .Route Qty: 100 1RF Rx Instructions: FS Bid lisinopril 40 mg tablet See Rx Instructions .ROUTE .COMPLEX Qty: 90 0RF Dose Instruction: TAKE 1 TABLET BY MOUTH ONCE DAILY Rx Instructions: TAKE 1 TABLET BY MOUTH ONCE DAILY metformin 500 mg tablet,ER roopa.retention 24 hr See Rx Instructions .ROUTE .COMPLEX Qty: 30 1RF Dose Instruction: TAKE 1 TABLET BY MOUTH EVERY DAY Rx Instructions: TAKE 1 TABLET BY MOUTH EVERY DAY amlodipine 10 mg tablet See Rx Instructions .ROUTE .COMPLEX Qty: 90 0RF Dose Instruction: TAKE 1 TABLET BY MOUTH DAILY Rx Instructions: TAKE 1 TABLET BY MOUTH DAILY atorvastatin 80 mg tablet See Rx Instructions .ROUTE .COMPLEX Qty: 90 0RF Dose Instruction: TAKE 1 TABLET BY MOUTH DAILY Rx Instructions: TAKE 1 TABLET BY MOUTH DAILY albuterol sulfate 90 mcg/actuation HFA aerosol inhaler 2 inh inhalation Q4H PRN (Reason: shortness of breath or wheezing) Qty: 6.7 0RF Referrals Follow up/Referrals: Siobhan De La Vega PA [Primary Care Provider] - See instructions Juan Diaz DO [Staff Physician] - See instructions Sunil Reece, PT [Physical Therapist] - See instructions Activity Restrictions/Add. Instructions Additional Instructions/Restrictions: Prednisone each morning for 5 days. 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 Sling for comfort, you can use the extremity as tolerated. Dr. Diaz (orthopedic) information here for follow-up. I would also recommend calling to schedule physical therapy for the shoulder. Information here as well. Sure to check your sugars closely over the next few days while you are on the steroid. Clinical Impressions Clinical Impression: Injury of tendon of biceps Discharge ED Provider: Raymond Watters General Adult HPI General Chief complaint: PAIN Stated complaint: AO-09/08- pain in R shoulder, cant lift arm Time Seen by Provider: 09/10/23 09:22 Mode of Arrival: Family Vehicle Source of Information: Patient Limitations: No Limitations Description of Symptoms (Recalled from ER Triage Doc. by RN): Pt c/o R shouler pain and difficulty moving shoulder after waking up this morning. State he was unhitching a trailer/truck and thinks he might have pulled something . Denies any parathesia to RUE. 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 History of Present Illness HPI narrative: 62-year-old male no relevant medical history presenting with right shoulder pain. Patient states that he was removing a trailer pen much earlier this morning, 09/09. Went to bed, woke up just prior to arrival and was unable to move his shoulder without significant pain. Has not taken anything or noticed anything that makes it better other than holding it still. No numbness, tingling, weakness or injury. Please note that above description of symptoms, in this electronic medical record under categorization of recalled from ER triage doctor by RN are reflective of an initial nursing assessment, however, is not reflective of my full history and physical exam that was personally taken and clarified. Consequentially, this preceding description of symptoms, which may include the patient's categorized chief complaint in the EMR, do not reflect my personal clinical impression, and the ultimate description of history of present illness and patient stated complaints should be deferred to this section of the note. Unless stated otherwise or congruent with this section of the note, additional signs, symptoms, or incongruence should be interpreted as inaccurate with my clinical impression. Related Data Home Medications Medication Instructions Recorded Confirmed tadalafil 5 mg tablet 5 mg PO DAILY 07/14/23 08/21/23 vit D3 50 mcg-vitamin K1 500 cap PO 07/14/23 08/21/23 mcg-MK4 1,500 mcg-MK7 180 mcg capsule Previous Rx's Medication Instructions Recorded aspirin 81 mg tablet,delayed 81 mg PO DAILY #90 tabs 06/03/22 release (Adult Aspirin Regimen) ibuprofen 800 mg tablet 800 mg PO TID #30 tabs 06/03/22 blood-glucose meter (Accu-Chek #1 ea 06/26/22 Guide Glucose Meter) lancets (Accu-Chek Softclix #200 ea 06/26/22 Lancets) blood sugar diagnostic (Accu-Chek #100 ea 06/30/22 Guide test strips) semaglutide 0.25 mg or 0.5 mg (2 0.25 mg (0.368 mL) SQ WEEKLY #3 mL 11/13/22 mg/3 mL) subcutaneous pen injector (Ozempic) lisinopril 40 mg tablet See Rx Instructions .Route 02/04/23 .COMPLEX #90 tabs metformin 500 mg 24 hr See Rx Instructions .Route 02/19/23 tablet,extended release (gastric .COMPLEX #30 tabs retention) amlodipine 10 mg tablet See Rx Instructions .Route 08/17/23 .COMPLEX #90 tabs albuterol sulfate 90 mcg/actuation 2 inh inhalation Q4H PRN shortness 08/21/23 aerosol inhaler of breath or wheezing #6.7 grams budesonide 160 mcg-glycopyr 9 2 inh inhalation BID #10.7 grams 08/21/23 mcg-formot 4.8 mcg/actuation HFA inhaler (Breztri Aerosphere) pantoprazole 20 mg tablet,delayed 20 mg PO DAILY #30 tabs 08/21/23 release (Protonix) atorvastatin 80 mg tablet See Rx Instructions .Route 08/24/23 .COMPLEX #90 tabs prednisone 20 mg tablet 40 mg (2 x 20 mg) PO DAILY 5 days 09/10/23 #10 tabs Allergies Allergy/AdvReac Type Severity Reaction Status Date / Time No Known Allergies Allergy Verified 08/21/23 10:[address] [facility] Disclaimer: The information contained in this section may have been updated after the patient was seen, as this information can be updated by other users. Medical History Erectile dysfunction Rheumatoid arthritis Fall Back pain Vitamin D deficiency Hyperlipidemia Hypertension Surgical History S/P trigger finger release LAP-BAND surgery status H/O heart artery stent x2 Social History Smoking Status: Former smoker alcohol intake: never current occupational status: employed Travel in the last 8 weeks: Inside the [place] ROS Obtained: Yes All systems reviewed & no additional complaints except as documented Physical Exam General General appearance: alert and in no apparent distress Head Head exam: atraumatic and normocephalic Eye Eye exam: Present normal appearance, PERRL and EOMI ENT ENT exam: Present mucous membranes moist Neck Neck exam: Present normal inspection, full ROM and trachea midline Respiratory Respiratory exam: Absent respiratory distress, wheezes, stridor, accessory muscle use or prolonged expiratory phase Cardiovascular Cardiovascular exam: Present normal rhythm Abdominal Exam Abdominal exam: Present soft; Absent distention, tenderness, guarding, rebound or rigidity Extremities Exam Extremities exam: Absent edema Expanded Upper Extremity Exam Right: Comment: Pain with active and passive range of motion abduction, adduction, flexion, extension right shoulder. External rotation, internal rotation nontender. No tenderness with range of motion of the elbow or wrist. Neurovascularly intact. Neurological Exam Neurological exam: Present alert, oriented X3, CN II-XII intact and normal gait; Absent motor sensory deficit Skin Skin exam: Present warm and dry; Absent diaphoresis or erythema Medical Decision Making Medical Records Medical records reviewed: Yes I reviewed the patient's medical records. Ritchie Inquiry Pt receiving controlled substance: No Ritchie was queried for this patient: No Vital Signs: 09/10/23 09:15 Temperature 98.2 F Temperature Source Oral Pulse Rate [Right] 80 Respiratory Rate 16 Blood Pressure [Left Arm] 134/90 Blood Pressure Mean [Left Arm] 104 Blood Pressure Source [Left Arm] Automatic Cuff 02 Sat by Pulse Oximetry 99 Oxygen Delivery Method Room Air Orders (Tests/Meds): ORDERS Category Date Time Status POCUS Point of Care (ER Only) Stat Exams 09/10/23 09:29 Ordered Medical Decision Narrative: 62-year-old male no relevant medical history presenting with right shoulder pain. Patient states that he was removing a trailer pen much earlier this morning, 09/09. Went to bed, woke up just prior to arrival and was unable to move his shoulder without significant pain. Has not taken anything or noticed anything that makes it better other than holding it still. No numbness, tingling, weakness or injury. On arrival, patient hemodynamically stable, neurovascularly intact. He has range of pain with active and passive range of motion of shoulder including abduction, adduction, flexion and extension. Internal and external rotation nontender. Pain is present even with stabilization of scapula. He does have significant tenderness overlying biceps tendon and AC joint. No outward signs of abnormality. Differential includes sprain, strain, among others. Bedside [id number] ultrasound with fluid surrounding the biceps tendon at bicipital groove proximally, but origin and insertion both intact. Patient does also have small GH joint effusion. Deltoid tuberosity unremarkable. Patient was given a sling for discomfort. Given history and physical exam, this most likely represents biceps tendon sprain versus combination biceps tendon and rotator cuff injury. Because patient at baseline without signs or symptoms of clinical decompensation, deemed appropriate for discharge. Results were relayed to patient who voiced understanding and were agreeable to outpatient management and follow up. I discussed my clinical impression with patient and answered all questions. At this time, the evidence for any other entities in the differential is insufficient to warrant any further testing or ED observation. This was explained as well. Advisory was given that persistent or worsening symptoms require further evaluation. I confirmed the understanding of this discussion. Datawarehouse Developer disclaimer Much of this encounter note is an electronic didactic program in dietetics director spoken language to printed text. Electronic didactic program in dietetics director of the spoken language may permit errors. Although I have reviewed the note, some errors may still exist. Critical Care Critical Care Time Critical Care Time: No
[2023-09-10 09:51] VITALS: BP 126/85; PULSE 68; RESP 18; TEMP 36.8; O2SAT 96
[2023-09-10 10:00] VITALS: BP 113/74; PULSE 68; O2SAT 96
== END 2023-09-10 10:17 | disposition home or self-care (01) ==
PROVIDERS: Emergency Provider Emergency Medicine; PCP Physician Assistant
DX: M25.511 Pain in right shoulder (principal); S46.201A Unspecified injury of muscle, fascia and tendon of other parts of biceps, right arm, initial encounter; X50.0XXA Overexertion from strenuous movement or load, initial encounter
CPT/HCPCS: 99284

== ENCOUNTER 2023-10-07 07:29 | Outpatient (CLI) | payer MEDICARE, SELFPAY ==
[2023-10-07 08:20] VITALS: PULSE 62; PULSE 67
[2023-10-07] MEDS: ALBUTEROL 0.083% 2.5 MG/3 ML NEB IH (08:20)
== END 2023-10-07 23:59 | disposition home or self-care (01) ==
LOC: RT 07:29
PROVIDERS: PCP Physician Assistant; Visit Provider Family Medicine
DX: R06.02 Shortness of breath (principal); R05.3 Chronic cough; Z87.891 Personal history of nicotine dependence
CPT/HCPCS: 94060; 94618; 94640; 94726; 94729; J7613

== ENCOUNTER 2024-03-06 07:57 | Emergency (ER) | payer MEDICARE, SELFPAY ==
[2024-03-06 07:59] VITALS: BP 107/72; PULSE 89; RESP 18; TEMP 37.1; O2SAT 98; BMI 27.8
--- NOTE | 2024-03-06 08:02 | PC.NURSE ---
in room talking with patient at this time.
--- NOTE | 2024-03-06 08:14 | ED_ITS ---
Discharge Plan Disposition Patient Disposition: Home, Self-Care Prescriptions Prescriptions: New ofloxacin 0.3 % drops 5 drp otic (ear) BID 10 Days Qty: 10 0RF No Action aspirin [Adult Aspirin Regimen] 81 mg tablet,delayed release (DR/EC) 81 mg PO DAILY Qty: 90 0RF Ozempic 0.25 mg or 0.5 mg (2 mg/3 mL) pen injector 0.25 mg SQ WEEKLY Qty: 3 2RF Rx Instructions: for 4 weeks vitamin D3-vit K1-vit MK4-MK7 50-500-1,500 mcg capsule PO tadalafil 5 mg tablet 5 mg PO DAILY Patient Comments: TAKE 1 TABLET BY MOUTH ONCE DAILY pantoprazole [Protonix] 20 mg tablet,delayed release (DR/EC) 20 mg PO DAILY Qty: 30 2RF Breztri Aerosphere 160-9-4.8 mcg/actuation HFA aerosol inhaler 2 inh inhalation BID Qty: 10.7 2RF (DME) blood-glucose meter [Accu-Chek Guide Glucose Meter] Misc See Rx Instructions .Route Qty: 1 3RF Rx Instructions: FS BID (DME) lancets [Accu-Chek Softclix Lancets] Misc See Rx Instructions .Route Qty: 200 3RF Rx Instructions: FS BID (DME) Accu-Chek Guide test strips Strip See Rx Instructions .Route Qty: 100 1RF Rx Instructions: FS Bid metformin 500 mg tablet,ER roopa.retention 24 hr See Rx Instructions .ROUTE .COMPLEX Qty: 30 1RF Dose Instruction: TAKE 1 TABLET BY MOUTH EVERY DAY Rx Instructions: TAKE 1 TABLET BY MOUTH EVERY DAY ibuprofen 800 mg tablet See Rx Instructions .ROUTE .COMPLEX Qty: 30 5RF Dose Instruction: TAKE 1 TABLET BY MOUTH THREE TIMES DAILY Rx Instructions: TAKE 1 TABLET BY MOUTH THREE TIMES DAILY lisinopril 40 mg tablet See Rx Instructions .ROUTE .COMPLEX Qty: 90 0RF Dose Instruction: TAKE 1 TABLET BY MOUTH DAILY Rx Instructions: TAKE 1 TABLET BY MOUTH DAILY amlodipine 10 mg tablet See Rx Instructions .ROUTE .COMPLEX Qty: 90 0RF Dose Instruction: TAKE 1 TABLET BY MOUTH DAILY Rx Instructions: TAKE 1 TABLET BY MOUTH DAILY atorvastatin 80 mg tablet See Rx Instructions .ROUTE .COMPLEX Qty: 90 0RF Dose Instruction: TAKE 1 TABLET BY MOUTH DAILY Rx Instructions: TAKE 1 TABLET BY MOUTH DAILY albuterol sulfate 90 mcg/actuation HFA aerosol inhaler 2 inh inhalation Q4H PRN (Reason: shortness of breath or wheezing) Qty: 6.7 0RF prednisone 20 mg tablet 40 mg PO DAILY 5 Days Qty: 10 0RF Referrals Follow up/Referrals: Manuel Azar MD [Physician] - See instructions (R ear, R mouth sore) Siobhan De La Vega PA [Primary Care Provider] - See instructions Activity Restrictions/Add. Instructions Additional Instructions/Restrictions: At this time it was felt you are safe to be discharged home. If new or worsening symptoms please do not hesitate to return the emergency department. When you put the drops in your ear please be sure to lay down on your side so that the drops will drift towards your middle ear. Please call and schedule an appointment with Dr. Azar as soon as possible to follow-up on both your right ear and your mouth sore. For pain please take Tylenol 1000 mg and ibuprofen 800 mg every 6 hours as needed with a little bit of food, it is okay to take them both at the same time. Clinical Impressions Clinical Impression: Otitis media, Otorrhea, URI (upper respiratory infection), Mouth sore Print Language Print Language: Bangladeshi Discharge ED Provider: Tien Garcia General Adult HPI General Chief complaint: Ear Stated complaint: right ear bleeding, toothache, congested Time Seen by Provider: 03/06/24 08:00 Mode of Arrival: Ambulatory Source of Information: Patient Limitations: No Limitations Description of Symptoms (Recalled from ER Triage Doc. by RN): r ear pain, congestion History of Present Illness HPI narrative: Patient is a 63-year-old male with past medical history of diabetes who presents emergency department for evaluation of ear pain and bleeding. Over the last few days patient has had upper respiratory symptoms with congestion, no significant cough or shortness of breath reported. He has had ear pain over the last 24 to 48 hours that ultimately resulted in bleeding when he inserted a Q-tip into the ear however he did not inserted in that far and rather got blood on the Q-tip which became concerning to him. He also has right-sided inferior mouth pain in a place where he does not have any teeth. No difficulty swallowing. No other acute complaints at this time. Related Data Home Medications ?Medication ?Instructions ?Recorded ?Confirmed tadalafil 5 mg tablet 5 mg PO DAILY 07/14/23 08/21/23 vit D3 50 mcg-vitamin K1 500 cap PO 07/14/23 08/21/23 mcg-MK4 1,500 mcg-MK7 180 mcg capsule Previous Rx's ?Medication ?Instructions ?Recorded aspirin 81 mg tablet,delayed 81 mg PO DAILY #90 tabs 06/03/22 release (Adult Aspirin Regimen) blood-glucose meter (Accu-Chek #1 ea 06/26/22 Guide Glucose Meter) lancets (Accu-Chek Softclix #200 ea 06/26/22 Lancets) blood sugar diagnostic (Accu-Chek #100 ea 06/30/22 Guide test strips) semaglutide 0.25 mg or 0.5 mg (2 0.25 mg (0.368 mL) SQ WEEKLY #3 mL 11/13/22 mg/3 mL) subcutaneous pen injector (Ozempic) metformin 500 mg 24 hr See Rx Instructions .Route 02/19/23 tablet,extended release (gastric .COMPLEX #30 tabs retention) albuterol sulfate 90 mcg/actuation 2 inh inhalation Q4H PRN shortness 08/21/23 aerosol inhaler of breath or wheezing #6.7 grams budesonide 160 mcg-glycopyr 9 2 inh inhalation BID #10.7 grams 08/21/23 mcg-formot 4.8 mcg/actuation HFA inhaler (Breztri Aerosphere) pantoprazole 20 mg tablet,delayed 20 mg PO DAILY #30 tabs 08/21/23 release (Protonix) ibuprofen 800 mg tablet See Rx Instructions .Route 09/10/23 .COMPLEX #30 tabs prednisone 20 mg tablet 40 mg (2 x 20 mg) PO DAILY 5 days 09/10/23 #10 tabs amlodipine 10 mg tablet See Rx Instructions .Route 11/13/23 .COMPLEX #90 tabs atorvastatin 80 mg tablet See Rx Instructions .Route 11/13/23 .COMPLEX #90 tabs lisinopril 40 mg tablet See Rx Instructions .Route 11/13/23 .COMPLEX #90 tabs ofloxacin 0.3 % ear drops 5 drp otic (ear) BID otitis 03/06/24 media/externa 10 days #10 mL Allergies Allergy/AdvReac Type Severity Reaction Status Date / Time No Known Allergies Allergy Verified 08/21/23 10:50 [facility] Disclaimer: The information contained in this section may have been updated after the patient was seen, as this information can be updated by other users. Medical History Erectile dysfunction Rheumatoid arthritis Fall Back pain Vitamin D deficiency Hyperlipidemia Hypertension Surgical History S/P trigger finger release LAP-BAND surgery status H/O heart artery stent x2 Social History Smoking Status: Current every day smoker alcohol intake: never current occupational status: employed Travel in the last 8 weeks: Inside the [place] Other Medical History Have you received the Pneumonia Vaccine: Yes ROS Obtained: Yes Systems reviewed as appropriate & no additional complaints except as documented Physical Exam General General appearance: alert and in no apparent distress Head Head exam: atraumatic and normocephalic Eye Eye exam: Present PERRL and EOMI ENT ENT exam: Present mucous membranes moist and other (No anterior effacement of the pinna or retroauricular swelling bilaterally.); Absent normal oropharynx (Subcentimeter circumferential white sore over the right mandibular gum without significant fluctuance. No elevation or woody floor of the mouth. No trismus.) or TM's normal bilaterally (Right external auditory canal with fibrinous exudate and erythema, pinna sign positive, it appears that there is otorrhea from the TM which is incompletely visualized secondary to exudate.) Neck Neck exam: Present normal inspection Chest Chest inspection: Present normal inspection and symmetric chest wall rise Respiratory Respiratory exam: Present normal lung sounds bilaterally; Absent respiratory distress Cardiovascular Cardiovascular exam: Present regular rate and normal rhythm Extremities Exam Extremities exam: Present normal inspection Neurological Exam Neurological exam: Present alert Psychiatric Psychiatric exam: Present normal affect Skin Skin exam: Present warm and dry Medical Decision Making Medical Records Screening: Per USPSTF and CDC recommendations, given the prevalence of disease in our region, it is our hospital?s policy to screen for HIV and viral Hepatitis for all patients aged 18 and over and those with ongoing risk factors. Ritchie Inquiry Pt receiving controlled substance: No Vital Signs: 03/06/24 07:59 Temperature 98.7 F Temperature Source Oral Pulse Rate [Left] 89 Respiratory Rate 18 Blood Pressure [Left Arm] 107/72 L Blood Pressure Mean [Left Arm] 83 02 Sat by Pulse Oximetry 98 Medical Decision Narrative: In summary patient is 63-year-old male with past medical history described above who presents emergency department for evaluation of multiple complaints including congestion, right-sided ear pain and bleeding, right mouth pain. Patient is hemodynamically stable nontoxic-appearing upon arrival, afebrile. With respect to congestion and ear pain with bleeding I suspect that patient has nonspecific viral upper respiratory infection with resultant middle ear effusion and small TM perforation with otorrhea with concomitant otitis externa. No concern for mastoiditis based on physical exam. Patient is clear to auscultation all lung gamez workup with imaging was considered but will be deferred. With respect to his mouth pain could be referred pain from his otitis externa however there is a subcentimeter sore which differential includes aphthous ulcer versus leukoplakia. Patient was given ofloxacin drops for his ear and is appropriate for outpatient management at this time will follow-up with Dr. Azar. Critical Care Critical Care Time Critical Care Time: No
[2024-03-06 08:17] VITALS: BP 107/72; PULSE 88; RESP 16; TEMP 36.6; O2SAT 96
== END 2024-03-06 08:17 | disposition home or self-care (01) ==
PROVIDERS: Emergency Provider Emergency Medicine; PCP Physician Assistant
DX: H66.90 Otitis media, unspecified, unspecified ear (principal); H92.10 Otorrhea, unspecified ear; J06.9 Acute upper respiratory infection, unspecified; K13.70 Unspecified lesions of oral mucosa
CPT/HCPCS: 99283

== ENCOUNTER 2024-05-04 14:12 | Outpatient (CLI) | payer MEDICARE, SELFPAY ==
--- NOTE | 2024-05-04 | CT_ITS ---
FINAL REPORT TECHNIQUE: Thin-section axial CT images were performed through the temporal bones before and after contrast administration. Coronal and sagittal reformatted images were submitted. This study was performed with techniques to keep radiation doses as low as reasonably achievable, (ALARA). Individualized dose reduction techniques using automated exposure control or adjustment of mA and/or kV according to the patient's size were employed. CLINICAL HISTORY: PAIN, MASTOISITIS recent left side ear injections FINDINGS: Right: There is near complete opacification of the right mastoid air cells. Minimal soft tissue is seen in the middle ear cavity. Ossicles are intact. Scutum are intact. There is debris in the right external auditory canal. Left: The internal and external auditory canals are normal. The inner ear structures are within normal limits. The middle ear cavity is unremarkable. The ossicles are intact. The mastoid antrum and mastoid air cells are unremarkable. IMPRESSION: Extensive changes of right mastoiditis with soft tissue thickening of the right middle ear cavity and debris in the external auditory canal. Reviewed, Interpreted and Dictated by Jose Woo MD Transcribed by Liz Carmona Authenticated and [facility]
[2024-05-04 14:54] LABS: Blood Urea Nitrogen 14 mg/dl (9-20); Estimated Glomerular Filt Rate 67 ml/min (>60); GFR (African American) 81 ML/MIN (>60)
[2024-05-04] MEDS: IOPAMIDOL-370 (76%);100ML BOTTLE 75 ML IV (15:11)
[2024-05-04] MEDS: SODIUM CHLORIDE 0.9% 10ML SYR (RAD ONLY) 10 ML IV (15:11)
== END 2024-05-04 23:59 | disposition home or self-care (01) ==
LOC: RAD 14:13
PROVIDERS: PCP Physician Assistant; Visit Provider Physician Assistant
DX: H66.91 Otitis media, unspecified, right ear (principal)
CPT/HCPCS: 36415; 70482; 82565; 84520; Q9967

== ENCOUNTER 2024-08-11 07:14 | Outpatient (CLI) | payer MEDICARE, SELFPAY ==
--- NOTE | 2024-08-11 07:19 | MR_ITS ---
FINAL REPORT CLINICAL HISTORY: RIGHT SIDED MASTOIDITIS. RIGHT SIDED EAR INFECTION 2 MONTHS AGO. COMPARISON: CT dated 05/03/2024 FINDINGS: Multiplanar MR imaging of the brain was performed without and with contrast. There is mild diffuse atrophy. There are a few, minimal scattered foci of abnormal signal in the deep white matter. There is no evidence of intracranial hemorrhage or mass. No abnormal extra-axial fluid collection is seen. The ventricular size is within normal limits. There is no evidence of shift of the midline structures. The posterior fossa and brainstem have an unremarkable appearance. No area of abnormal restricted diffusion is identified. No abnormal contrast enhancement is seen. Normal major vessel vascular flow voids are noted. Again seen is abnormal signal in the inferior right mastoid air cells. This abnormal signal has improved compared to the prior exam. There are no air-fluid levels. The middle ear cavities are unremarkable. IMPRESSION: No acute intracranial abnormality identified. No abnormal contrast-enhancement. Improvement of previously noted right mastoiditis. Reviewed, Interpreted and Dictated by Jose Woo MD Transcribed by Alaina Arauz Authenticated and . [facility]
[2024-08-11 07:44] LABS: Blood Urea Nitrogen 21 mg/dl (9-20); Estimated Glomerular Filt Rate 51 ml/min (>60); GFR (African American) 62 ML/MIN (>60)
[2024-08-11] MEDS: SODIUM CHLORIDE 0.9% 10ML SYR (RAD ONLY) 10 ML IV (08:13)
[2024-08-11] MEDS: GADOTERIDOL INJ 20ML SYRINGE 17 ML IV (08:13)
== END 2024-08-11 23:59 | disposition home or self-care (01) ==
LOC: RAD 07:17
PROVIDERS: PCP Physician Assistant; Visit Provider Physician Assistant
DX: H92.01 Otalgia, right ear (principal); H75.01 Mastoiditis in infectious and parasitic diseases classified elsewhere, right ear
CPT/HCPCS: 36415; 70553; 82565; 84520; A9576

== ENCOUNTER 2024-09-26 08:26 | Day surgery (SDC) | payer MEDICARE, SELFPAY ==
[2024-09-23 09:46] VITALS: BMI 30.1
[2024-09-26] MEDS: LACTATED RINGERS 1000ML 1,000 ML 50 ML IV (09:08)
[2024-09-26 09:13] VITALS: BP 158/90; PULSE 63; RESP 17; TEMP 36.1; O2SAT 100
[2024-09-26 09:17] VITALS: BP 158/90; PULSE 63; RESP 17; TEMP 36.1; O2SAT 100
--- NOTE | 2024-09-26 09:37 | P.PNANES_ITS ---
[facility] Disclaimer: The information contained in this section may have been updated after the patient was seen, as this information can be updated by other users. Medical History Diabetes mellitus, type 2 Hearing loss Mastoiditis of right side Erectile dysfunction Rheumatoid arthritis Fall Back pain Vitamin D deficiency Hyperlipidemia Hypertension Surgical History S/P trigger finger release LAP-BAND surgery status H/O heart artery stent Family History Other Family history of myocardial infarction Social History Smoking Status: Former smoker alcohol intake: current substance use type: denies use current occupational status: employed Travel in the last 8 weeks?: Inside the [place] [facility] Anesthesia Checklist Patient Identification Patient Identification: Arm Band Structural Data Admitted From: Home Planned Operative Procedure/s: Colonoscopy Consent for Planned Operative Procedure(s) Verified: Yes Verified Documents: Surgical Consent and History and Physical NPO Status Verified Time NPO: 04:00 (finished prep) Additional verifications Anesthesia Reactions: No Airway Assessment Mallampati Score:: Class II C-Spine Mobility Assessed: Yes TMJ Mobility Assessed: Yes Dentition: Poor Dentition Neurological Assessment Level of Consciousness: Awake, Alert and Appropriate Anesthesia Plan Anesthesia Risk discussed: Yes Anesthesia Plan: Verified ASA Class: III Anesthesia Type: MAC
--- NOTE | 2024-09-26 09:46 | EXP.HP ---
History of Present Illness *Admission Date: 09/26/24 *Reason for visit:: Screening for colon cancer *History of present illness: Mr. Carver is a 63-year-old gentleman who is here for initial screening colonoscopy/screening for colon cancer. The examination is deemed medically necessary for screening colonoscopy. The patient has been seen, interviewed and examined prior to the procedure by both myself and the anesthesia provider. [facility] Disclaimer: The information contained in this section may have been updated after the patient was seen, as this information can be updated by other users. Medical History (Updated 09/26/24 @ 09:53 by Robert Lang II, MD) Diabetes mellitus, type 2 Hearing loss Mastoiditis of right side Erectile dysfunction Rheumatoid arthritis Fall Back pain Vitamin D deficiency Hyperlipidemia Hypertension Surgical History S/P trigger finger release LAP-BAND surgery status H/O heart artery stent Family History Other Family history of myocardial infarction Social History (Updated 09/26/24 @ 09:38 by Angelito Mosley CRNA) Smoking Status: Former smoker alcohol intake: current substance use type: denies use current occupational status: employed Travel in the last 8 weeks?: Inside the [place] Have you lived/traveled outside US in past 30 days?: No Contact w/someone who lives/traveled outside US past 30 days?: No Exposure to someone with infectious disease in past 14 days?: No Do you have a fever (greater than 100.4 F or 38 C)?: No Have you tested positive for COVID-19?: No Exposed to someone with COVID-19 in past 14 days?: No Do you have a sore throat?: No Do you have a cough?: No Do you have any weakness?: No Do you have any diarrhea?: No Are you experiencing any unusual bleeding?: No Do you have any muscle aches/pain?: No Do you have any abdominal pain?: No Are you experiencing loss of taste or smell?: No Other Medical History Have you received the Pneumonia Vaccine: Yes Review of Systems Review of Systems Review of systems (narrative): Negative *Cardiovascular Comments: Negative *Gastrointestinal Comments: Negative *Genitourinary Comments: Negative *Musculoskeletal Comments: Negative *Neurologic Comments: Negative Meds Home Medications and Allergies Home Medications ?Medication ?Instructions ?Recorded ?Confirmed ?Type blood-glucose meter (Accu-Chek #1 ea 06/26/22 09/23/24 Rx Guide Glucose Meter) lancets (Accu-Chek Softclix #200 ea 06/26/22 09/23/24 Rx Lancets) blood sugar diagnostic (Accu-Chek #100 ea 06/30/22 09/23/24 Rx Guide test strips) semaglutide 0.25 mg or 0.5 mg (2 0.25 mg (0.368 mL) SQ WEEKLY #3 mL 11/13/22 09/26/24 Rx mg/3 mL) subcutaneous pen injector (clickTRUE) tadalafil 5 mg tablet (Cialis) 5 mg PO DAILY PRN ERECTILE 07/14/23 09/26/24 History DYSFUNCTION albuterol sulfate 90 mcg/actuation 2 inh inhalation Q4H PRN shortness 08/21/23 09/26/24 Rx aerosol inhaler of breath or wheezing #6.7 grams ibuprofen 800 mg tablet See Rx Instructions .Route 09/10/23 09/26/24 Rx .COMPLEX #30 tabs amlodipine 10 mg tablet See Rx Instructions .Route 11/13/23 09/26/24 Rx .COMPLEX #90 tabs atorvastatin 80 mg tablet See Rx Instructions .Route 11/13/23 09/26/24 Rx .COMPLEX #90 tabs lisinopril 40 mg tablet See Rx Instructions .Route 11/13/23 09/26/24 Rx .COMPLEX #90 tabs New Prescriptions to Start Prescriptions: Allergies Allergy/AdvReac Type Severity Reaction Status Date / Time No Known Allergies Allergy Verified 09/26/24 09:09 Exam Data for Last 24 hours Vital signs and Labs for Last 24 Hours: Temp Pulse Resp BP Pulse Ox O2 Del Method 97.0 F L 63 17 158/90 H 100 Room Air 09/26/24 09:17 09/26/24 09:17 09/26/24 09:17 09/26/24 09:17 09/26/24 09:17 09/26/24 09:17 I & O for Last 24 hours: Intake & Output 09/23/24 09/24/24 09/25/24 09/26/24 23:59 23:59 23:59 23:59 Weight 204 lb *Routine HEENT Exam Head: Present normocephalic Eye: Present EOMI and PERRL ENT: Present mucous membranes moist *Routine Neck Exam Neck: Present supple *Routine Respiratory Exam Respiratory: Present CTA bilaterally *Routine Cardiovascular Exam Cardiovascular: Present RRR *Routine Abdominal Exam Abdominal: Present soft and normoactive bowel sounds; Absent tenderness *Routine Rectal Exam Rectal:: deferred *Routine Genitalia Exam Genitalia:: deferred *Routine Extremities Exam Extremities: Absent cyanosis, clubbing or edema *Routine Skin Exam Skin: Present warm; Absent rash *Routine Neurological Exam Neurological: Present alert and oriented X3 Assessment and Plan *Assessment and plan (1) Screening for colon cancer: Status: Acute Category: Medical Code(s): Z12.11 - Encounter for screening for malignant neoplasm of colon Plan A/P: 1. Screening for colon cancer is the preprocedural diagnosis. The patient will be anesthetized/sedated using MAC sedation. The patient has been seen and examined. Cardiac and lung assessment prior to the examination is stable. Proceed with planned initial screening colonoscopy.
--- NOTE | 2024-09-26 09:53 | HMH.PROCNOTE ---
[facility] Procedure Note Date: 09/26/24 Time: 10:08 Procedure Note:: Colonoscopy Procedure Report: Colonoscopy Endoscopist: Robert Lang II, MD Referring physician: Siobhan De La Vega PA-C Date of Procedure: September 26, 2024 Equipment: Olympus 190 variable stiffness pediatric colonoscope Sedation: MAC sedation Indication: Mr. Carver is a 63-year-old gentleman who is here for initial screening colonoscopy. He reports no abdominal pain, weight loss, change in his bowel habits or rectal bleeding. He reports no family history of colon cancer. His older brother and sister had cancer (unknown primary). Procedure: Prior to the procedure, a history and physical exam was performed, and patient's medications and allergies were reviewed. The risks, benefits and alternatives of the sedation and procedure were discussed with the patient. All questions were answered and informed consent was obtained. The patient was brought to the procedure room. Patient identification and proposed procedure were verified by the physician and the nurse. The patient was placed in a left lateral decubitus position and the scope was passed under direct vision. Throughout the procedure, the patient's blood pressure, pulse, and oxygen saturations were monitored continuously. The colonoscopy was accomplished without difficulty. The patient tolerated the procedure well. Findings: On digital rectal examination there was normal rectal tone. There were no external hemorrhoids. The prostate was mildly firm but symmetric without nodules. The colonoscope was introduced through the anal canal to the rectum and advanced to the cecum. The ileocecal valve and appendiceal orifice were identified. The scope was advanced a short distance into the ileum which appeared grossly normal. The scope was then withdrawn into the colon. The cecum, ascending and transverse colon and mucosa were grossly normal. There were mildly scattered diverticuli throughout the descending and sigmoid colon (LEFT colon). The rectum itself was normal. Upon retroflexion within the rectum there were grade 2 internal hemorrhoids. The preparation was excellent throughout with [place] Preparation Score of 9. The cecal time was 12 minutes. Impression: 1. Mild left-sided diverticulosis 2. Grade 2 internal hemorrhoids Plan: The patient will not require surveillance colonoscopy again for 10 years by ACS guidelines. I would encourage bulking psyllium fiber supplementation on a maintenance basis.
[2024-09-26 10:10] VITALS: BP 88/54; PULSE 57; RESP 16; TEMP 36.2; O2SAT 98
[2024-09-26 10:20] VITALS: BP 101/65; PULSE 57; RESP 16; O2SAT 100
[2024-09-26 10:30] VITALS: BP 105/61; PULSE 58; RESP 16; O2SAT 99
[2024-09-26 10:40] VITALS: BP 111/72; PULSE 59; RESP 16; O2SAT 100
[2024-09-26 16:00] LABS: POC Glucose,Bedside 80 (70-110)
== END 2024-09-26 10:50 | disposition home or self-care (01) ==
PROVIDERS: PCP Physician Assistant; Visit Provider Internal Medicine Gastroenterology
PROC: 0DJD8ZZ Inspection of Lower Intestinal Tract, Via Natural or Artificial Opening Endoscopic (ICD-10-PCS; CPT 45378; principal; 2024-09-26 10:00)
DX: Z12.11 Encounter for screening for malignant neoplasm of colon (principal); K57.30 Diverticulosis of large intestine without perforation or abscess without bleeding; K64.1 Second degree hemorrhoids; E11.9 Type 2 diabetes mellitus without complications; I10 Essential (primary) hypertension; M06.9 Rheumatoid arthritis, unspecified; E78.5 Hyperlipidemia, unspecified; Z79.899 Other long term (current) drug therapy; Z87.891 Personal history of nicotine dependence
CPT/HCPCS: G0121; 82962; J7120

== ENCOUNTER 2024-12-20 16:24 | Outpatient (CLI) | payer MEDICARE, SELFPAY ==
--- OUTSIDE RECORDS SUMMARY | 2024-11-28 12:30 | XMS_ITS | Encounter Summary ---
Author Organization [facility] Address [address] [place] [address] Care Team Providers Care Computer Applications Developer Name Role Phone Siobhan De La Vega Primary Care Provider [phone] Reason for Visit * Diagnostic Imaging (Routine) - Closed Specialty Diagnoses / Procedures Referred By Marisaac t Referred To Contact Diagnoses Coronary artery disease involving [place] coronary artery of [place] heart without angina pectoris Encounter for examination required by Department of Transportation (DOT) Procedures Adult Transthoracic Echo Complete W/ Cont if Necessary Per Protocol Marcella Menchaca APRN [address] [place] [address] Phone: tel: fax: [facility] [place] [address] [address] [place] [address] Phone: tel: fax: Referral ID Status Reason Start Date Expiration Date Visits Re quested Visits Authorized [id number] Closed 12/04/2023 12/03/2024 1 1 Encounter Details Date Type Department Care Team (Latest Contact Info) Description 11/28/2024 12:30 PM EDT Ancillary Procedure [facility] [address] [place] [place] [address] Coronary artery disease involving [place] coronary artery of [place] heart without angina pectoris; Encounter for examination required by Department of Transportation (DOT) Social History Tobacco Use Types Packs/Day Years Used Date Smoking Tobacco: Every Day Cigarettes Passive Smoke Exposure: Current Smokeless Tobacco: Never Alcohol Use Standard Drinks/Week Comments Never 0 (1 standard drink = 0.6 oz pur e alcohol) Sex and Gender Information Value Date Recorded Sex Assigned at Male 11/25/2022 5:36 PM EDT Legal Sex Male 9:28 AM EDT Gender Identity Male 11/25/2022 5:36 PM EDT Sexual Orientation Straight 11/25/2022 5: 36 PM EDT documented as of this encounter Last Filed Vital Signs Vital Sign Reading Time Taken Comments Blood Pressure 145/82 11/28/2024 12:35 PM EDT Pulse - - Temperature - - Respiratory Rate - - Oxygen Saturation - - Inhaled Oxygen Concentration - - Weight 90.3 kg (199 lb) 11/28/2024 12:35 PM EDT Height 180.3 cm (5' 11 ) 11/28/2024 12:35 PM EDT Body Mass Index 27.75 11/28/2024 12:35 PM EDT documented in this encounter Plan of Treatment Upcoming Encounters Date Type Department Care Team (Late st Contact Info) Description 02/16/2025 9:00 AM EDT Registration [facility] [address] [facility] [address] [place] [address] 02/16/2025 9:30 AM EDT Office Visit [facility] [address] [facility] [address] [place] [address] 02/16/2025 10:00 AM EDT Office Visit [facility] [address] [facility] [address] [place] [address] Fly Kee MD [facility] [place] [address] 03/02/2025 9:30 AM EST Office Visit [facility] [address] [place] [address] Portia Nguyen APRN [address] [place] [address] [place] [address] documented as of this encounter Procedures Procedure Name Priority Date/Time Associated Diagnosis Comments ECHO COMPLETE W/ DOPPLER AND COLOR FLOW Routine 11/28/2024 1:22 PM EDT Coronary artery disease involving [place] coronary artery of [place] heart without angina pectoris Encounter for examination required by Department of Transportation (DOT) documented in this encounter Results * ECHO COMPLETE W/ DOPPLER AND COLOR FLOW (11/28/2024 1:22 PM EDT) EF(MOD-bp) 59.7 % LV GLOBAL STRAIN -20.5 % LVIDd 4.6 cm LVIDs 3.0 cm IVSd 1.38 cm LVPWd 1.39 cm FS 35.8 % IVS/LVPW 0.99 cm ESV(cubed) 25.9 ml LV Sys Vol (BSA corrected) 34.0 cm2 EDV(cubed) 98.0 ml LV Alarcon Vol (BSA corrected) 87.4 cm2 LV mass(C)d 253.5 grams LVOT area 4.5 cm2 LVOT diam 2.40 cm EDV(MOD-sp2) 197.0 ml EDV(MOD-sp4) 182.0 ml ESV(MOD-sp2) 82.7 ml ESV(MOD-sp4) 70.8 ml SV(MOD-sp2) 114.3 ml SV(MOD-sp4) 111.2 ml SVi(MOD-SP2) 54.9 ml/m2 SVi(MOD-SP4) 53.4 ml/m2 SVi (LVOT) 53.0 ml/m2 EF(MOD-sp2) 58.0 % EF(MOD-sp4) 61.1 % MV E max damon 57.3 cm/sec MV A max damon 66.6 cm/sec MV dec time 0.32 sec MV E/A 0.86 IVRT 185.0 ms LA ESV Index (BP) 29.6 ml/m2 Med Peak E' Damon 6.4 cm/sec Lat Peak E' Damon 10.7 cm/sec TR max damon 208.0 cm/sec Avg E/e' ratio 6.70 SV(LVOT) 110.4 ml RVIDd 3.3 cm RV Base 3.3 cm RV Mid 3.3 cm RV Length 7.9 cm TAPSE (>1.6) 2.8 cm RV S' 14.7 cm/sec LA dimension (2D) 4.1 cm LV V1 max 101.0 cm/sec LV V1 max PG 4.1 mmHg LV V1 mean PG 2.00 mmHg LV V1 VTI 24.4 cm Ao pk damon 107.0 cm/sec Ao max PG 4.6 mmHg Ao mean PG 3.0 mmHg Ao V2 VTI 28.0 cm KATIE(I,D) 3.9 cm2 Dimensionless Index 0.87 (DI) AI P1/2t 1,099 msec MV max PG 1.58 mmHg MV mean PG 1.00 mmHg MV V2 VTI 28.4 cm MV P1/2t 93.9 msec MVA(P1/2t) 2.34 cm2 MVA(VTI) 3.9 cm2 MV dec slope 201.5 cm/sec2 TR max PG 17.3 mmHg RVSP(TR) 20.3 mmHg RAP systole 3.0 mmHg PA V2 max 81.4 cm/sec Ao root diam 3.5 cm Sinus 3.5 cm Ascending aorta 3.3 cm Aortic arch 2.9 cm Anatomical Region Laterality Modality Ultrasound Narrative 11/28/2024 5:42 PM EDT Left ventricular systolic function is normal. Calculated left ventricular EF = 59.7% Left ventricular ejection fraction appears to be 61 - 65%. Left ventricular diastolic function was indeterminate. Estimated right ventricular systolic pressure from tricuspid regurgitation is normal (<35 mmHg). Mild to moderate mitral valve regurgitation is present. Left Ventricle Left ventricular systolic function is normal. Calculated left ventricular EF = 59.7% Left ventricular ejection fraction appears to be 61 - 65%. Normal global longitudinal LV strain (GLS) = -20.5%. Normal left ventricular cavity size noted. Left ventricular wall thickness is consistent with mild concentric hypertrophy. All left ventricular wall segments contract normally. Left ventricular diastolic function was indeterminate. Right Ventricle Normal right ventricular cavity size, wall thickness, systolic function and septal motion noted. Left Atrium Left atrial volume is moderately increased. Right Atrium Normal right atrial cavity size noted. Right atrial volume is 19 ml. Mitral Valve Mitral annular calcification is present. There is mild, bileaflet mitral valve thickening present. Mild to moderate mitral valve regurgitation is present. No significant mitral valve stenosis is present. Tricuspid Valve The tricuspid valve is structurally normal with no significant stenosis present. Trace to mild tricuspid valve regurgitation is present. Estimated right ventricular systolic pressure from tricuspid regurgitation is normal (<35 mmHg). Aortic Valve The aortic valve is abnormal in structure. There is mild calcification of the aortic valve. The aortic valve appears trileaflet. Mild aortic valve regurgitation is present. No aortic valve stenosis is present. Pulmonic Valve The pulmonic valve is structurally normal with no significant stenosis present. There is trace pulmonic valve regurgitation present. Pericardium The pericardium is normal. There is no evidence of pericardial effusion. . Greater Vessels No dilation of the aortic root is present. No dilation of the sinuses of Valsalva is present. No dilation of the proximal aorta is present. No dilation of the ascending aorta is present. No dilation of the aortic arch is present. Inferior vena cava not well visualized. The pulmonary artery not well visualized. Study Quality The study is technically difficult for diagnosis. The quality of the study is limited with poor acoustic windows in the parasternal window and subcostal window. Sinus bradycardia was the predominant rhythm observed during the procedure. Wall Scoring Score Index: 1.00 The left ventricular wall motion is normal. Marcella Menchaca APRN CV ECHO ORDERABLES Final Result documented in this encounter Visit Diagnoses Diagnosis Coronary artery disease involving [place] coronary artery of [place] heart without angina pectoris Encounter for examination required by Department of Transportation (DOT) documented in this encounter Care Teams Computer Applications Developer Relationship Specialty Start Date End Date Siobhan De La Vega PA PCP - General Physician Burning Plant Operator 12/02/22 documented as of this encounter
--- OUTSIDE RECORDS SUMMARY | 2024-11-28 13:30 | XMS_ITS | Encounter Summary ---
Author Organization [facility] Address [address] [place] [address] Care Team Providers Care Node Js Developer Name Role Phone Siobhan De La Vega Primary Care Provider [phone] Reason for Visit * Diagnostic Imaging (Routine) - Closed Specialty Diagnoses / Procedures Referred By Scott t Referred To Contact Diagnoses Coronary artery disease involving [place] coronary artery of [place] heart without angina pectoris Encounter for examination required by Department of Transportation (DOT) Procedures Adult Stress Echo W/ Cont or Stress Agent if Necessary Per Protocol Marcella Menchaca APRN [address] [place] [address] Phone: tel: fax: [facility] [place] [address] [address] [place] [address] Phone: tel: fax: Referral ID Status Reason Start Date Expiration Date Visits Re quested Visits Authorized [id number] Closed 12/04/2023 12/03/2024 1 1 Encounter Details Date Type Department Care Team (Latest Contact Info) Description 11/28/2024 1:30 PM EDT Ancillary Procedure [facility] [address] [place] [address] Coronary artery disease involving [place] coronary artery of [place] heart without angina pectoris; Encounter for examination [...] Sign Reading Time Taken Comments Blood Pressure 122/80 11/28/2024 1:43 PM EDT Pulse 49 11/28/2024 1:43 PM EDT Temperature - - Respiratory Rate - - Oxygen Saturation - - Inhaled Oxygen Concentration - - Weight 90.3 kg (199 lb) 11/28/2024 1:43 PM EDT Height 180.3 cm (5' 11 ) 11/28/2024 1:43 PM EDT Body Mass Index 27.75 11/28/2024 1:43 PM EDT documented in this encounter Plan of Treatment Upcoming Encounters Date Type Department Care Team (Late st Contact Info) Description 02/16/2025 9:00 AM EDT Registration [facility] [address] [facility] [address] [place] [address] 02/16/2025 9:30 AM EDT Office Visit [facility] [address] [place] [address] [address] [place] [address] 02/16/2025 10:00 AM EDT Office Visit [facility] [address] [place] [address] [address] [place] [address] Fly Kee MD [address] [place] [address] 03/02/2025 9:30 AM EST Office Visit [facility] [address] [place] [address] Portia Nguyen APRN [address] [place] [address] [place] [address] Scheduled Orders Name Type Priority Associated Diagnoses Order Schedule Stress Test Scan Stress Echocardiography Ordered: 11/28/2024 documented as of this encounter Procedures Procedure Name Priority Date/Time Associated Diagnosis Comments SE QUAD ONLY W/ EXERCISE Routine 11/28/2024 2:02 PM EDT Coronary artery disease involving [place] coronary artery of [place] heart without angina pectoris Encounter for examination required by Department of Transportation (DOT) documented in this encounter Results * SE QUAD ONLY W/ EXERCISE (11/28/2024 2:02 PM EDT) Anatomical Region Laterality Modality Ultrasound Narrative 11/28/2024 5:46 PM EDT Normal stress echo consistent with a low risk study for myocardial ischemia. Stress Findings No ECG evidence of myocardial ischemia. Negative clinical evidence of myocardial ischemia. Findings consistent with a normal ECG stress test. Rest ECG Baseline ECG of normal sinus rhythm noted at rest. Normal baseline ECG noted at rest. There was no ST segment deviation noted. Stress ECG Stress ECG of normal sinus rhythm noted. Normal ECG with no significant stress induced changes noted. There was no ST segment deviation noted during stress. There were no arrhythmias during stress. There were no significant arrhythmias noted during stress. Stress ECG was interpretable and is consistent with a normal stress ECG. Ventricle Size / Description Segment augmentation had a normal response to stress. Cavity size behaved normally in response to stress. Left ventricular function is normal. Septal wall motion is normal. Stress Description A stress test was performed following the Jose Alfredo protocol. The patient achieved the target heart rate. The test was stopped because the clinician observed fatigue. The patient experienced no angina during the stress test. Blood pressure demonstrated a normal response to stress. Heart rate demonstrated a normal response to stress. Overall, the patient's exercise capacity was normal. Stress Echo - Peak Stress Findings Post stress images with adequate visualization of myocardium to assess for ischemia. Normal stress echo consistent with a low risk study for myocardial ischemia. Recovery ECG During recovery, the patient complained of no significant symptoms following stress. Sinus rhythm was noted during recovery. Normal ECG with no significant recovery phase changes noted. Arrhythmias during recovery: occasional PVC's. Arrhythmias were not significant during recovery. Test Weights And Measures Sealer ECG [place] Wall Scoring Score Index: 1.00 The left ventricular wall motion is normal. Marcella Menchaca APRN CV ECHO ORDERABLES Final Result documented in this encounter Visit Diagnoses Diagnosis Coronary artery disease involving [place] coronary artery of [place] heart without angina pectoris Encounter for examination required by Department of Transportation (DOT) documented in this encounter Care Teams Node Js Developer Relationship Specialty Start Date End Date Siobhan De La Vega PA PCP - General Physician Slip Cover Estimator 12/02/22 documented as of this encounter
--- OUTSIDE RECORDS SUMMARY | 2024-12-02 08:30 | XMS_ITS | Encounter Summary ---
Author Organization [facility] Address [address] [place] [address] Care Team Providers Care Epoxy Coatings Installer Name Role Phone Siobhan De La Vega Primary Care Provider [phone] Reason for Referral * Medical Care (Routine) - Authorized - Pending Scheduling Specialty Diagnoses / Procedures Referred By Marisaac t Referred To Contact Diagnoses Shortness of breath Procedures Overnight Sleep Oximetry Study Portia Nguyen APRN [address] [place] [address] [place] [address] Phone: tel: fax: [place] [address] [place] [address] Phone: tel: fax: Referral ID Status Reason Start Date Expiration Date Visits Requested Visits Authorized [id number] Authorized - Pending Scheduling 12/02/2024 03/03/2026 1 1 * Diagnostic Medical (Routine) - Authorized Specialty Diagnoses / Procedures Referred By Contac t Referred To Contact Pulmonology Diagnoses Shortness of breath Procedures Complete PFT - Pre & Post Bronchodilator Portia Nguyen APRN [address] [place] [address] [place] [address] Phone: tel: fax: [facility] [address] [place] [address] Phone: tel: fax: Referral ID Status Reason Start Date Expiration Date V isits Requested Visits Authorized [id number] Authorized 12/02/2024 03/03/2026 1 1 * Consultation (Routine) - Authorized Specialty Diagnoses / Procedures Referred By Contac t Referred To Contact Pulmonary Disease / Pulmonology Diagnoses Shortness of breath Procedures NH OFFICE/OUTPATIENT NEW MODERATE MDM 45 MINUTES Portia Nguyen APRN [address] [place] [address] [place] [address] Phone: tel: fax: Mary Duggan APRN [address] [facility] [address] [place] [address] Phone: tel: fax: Referral ID Status Reason Start Date Expiration Date V isits Requested Visits Authorized [id number] Authorized 12/02/2024 03/03/2026 1 1 Reason for Visit * Reason Comments Coronary Artery Disease Pt is here for a 1 year follow up for CAD. Pt denies chest pain, dizziness, no swelling of limbs, no palpitations, no falls. Pt states he has SOA. Encounter Details Date Type Department Care Team (Late st Contact Info) Description 12/02/2024 8:30 AM EDT Office Visit [facility] [address] [place] [id number] Portia Nguyen APRN [address] [place] [address] [place] [address] Coronary artery disease involving galena coronary artery of galena heart without angina pectoris (Primary Dx); Essential hypertension; Hyperlipidemia LDL goal <70; Nonrheumatic aortic valve insufficiency; Shortness of breath Social History Tobacco Use Types Packs/Day Years [...] Sign Reading Time Taken Comments Blood Pressure 132/72 12/02/2024 8:33 AM EDT Pulse 55 12/02/2024 8:33 AM EDT Temperature 36.4 C (97.6 F) 12/02/2024 8:33 AM EDT Respiratory Rate - - Oxygen Saturation 99% 12/02/2024 8:33 AM EDT Inhaled Oxygen Concentration - - Weight 91.4 kg (201 lb 9.6 oz) 12/02/2024 8:33 A M EDT Height 180.3 cm (5' 11 ) 12/02/2024 8:33 AM EDT Body Mass Index 28.12 12/02/2024 8:33 AM EDT documented in this encounter Progress Notes * Potria Nguyen APRN - 12/02/2024 6:50 PM EDTAssociated Problem(s): Coronary artery disease involving galena coronary artery of galena heart without angina pectoris Coronary artery disease is stable. Continue current treatment regimen. Continue current medications. Cardiac status will be reassessed in 1 year. - Currently stable and asymptomatic. Continue aspirin, atorvastatin and lisinopril current doses * Portia Nguyen APRN - 12/02/2024 6:48 PM EDTAssociated Problem(s): Shortness of breath Patient's significant other reports he is having pursed lip breathing with low O2 sats below 88% aswell as intermittent confusion. She is requesting a referral to pulmonary. Patient has not been diagnosed formally with any type of emphysema, asthma or COPD. Plan PFTs at [facility] to hopefully expedite things for pulmonary doctor. Overnight pulse ox to check for nocturnal desaturations. Pulmonary referral for further evaluation. * Portia Nguyen APRN - 12/02/2024 6:46 PM EDTAssociated Problem(s): Nonrheumatic aortic valve insufficiency Mild to moderate mitral valve regurgitation noted on echo 11/28/2024. Plan to recheck echo in 1 year. * Portia Nguyen APRN - 12/02/2024 6:45 PM EDTAssociated Problem(s): Hyperlipidemia LDL goal <70 No no current lab work. PCP did not send when requested. Patient to continue his atorvastatin 80 mg. * Portia Nguyen APRN - 12/02/2024 6:44 PM EDTAssociated Problem(s): Essential hypertension Hypertension is stable and controlled Continue current treatment regimen. Blood pressure will be reassessed in 3 months. Patient to continue his amlodipine and lisinopril for blood pressure control. * Portia Nguyen APRN - 12/02/2024 8:30 AM EDT Images from the original note were not included. [facility] Provider Note Date: 12/02/2024 Name: Randolph Carver : 1960 PCP: Siobhan De La Vega PA Chief Complaint Patient presents with ??? Coronary Artery Disease Pt is here for a 1 year follow up for CAD. Pt denies chest pain, dizziness, no swelling of limbs, no palpitations, no falls. Pt states he has SOA. Subjective History of Present Illness Randolph Carver is a 64 y.o. 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 Patient had recent stress test which was overall low risk. His blood pressure is well-controlled 132/72. EKG showed patient has bradycardia with a heart rate of 55 he is on no beta-blockers. Patient has his significant other Giovani on the phone. She states that patient has been having episodes of pursed lip breathing. She states that she bought him a oxygen sensor and he has been having oxygen levels below 88%. She states he is having periods of confusion with the low oxygen. She states that he has been on Breztri inhaler 2 puffs once a day. Patient is not a smoker, but smoked when he was younger. He states he quit many years ago. Giovani is requesting a referral to pulmonary for him to be evaluated for his shortness of breath. We will also order PFTs to expedite things for the pulmonary doctor.Patient states he has not been formally diagnosed with any type of asthma, emphysema, or COPD. Cardiac history 1. CAD-s/p stenting >20 years ago 2. Hypertension 3. Hyperlipidemia 4. Diabetes 5. Trace to Mild Aortic Regurg - DX 12/31/2022 12/15/2022 echo-normal EF, mild to moderate concentric hypertrophy, grade 1 diastolic dysfunction, right ventricle cavity is mildly dilated, left atrial cavity is dilated, mild MR, trace to mild aortic valve regurgitation. 12/31/2022 DB low risk Reports Denies Chest Pain [] [x] Shortness of Air [] [x] Palpitations [] [x] Edema [] [x] Dizziness [] [x] Syncope [] [x] No Known Allergies Current Outpatient Medications: ??? albuterol sulfate HFA 108 (90 Base) MCG/ACT inhaler, Inhale 2 puffs every 4 hours by inhalationroute as needed for 30 days, for wheezing/shortness of breath., Disp: , Rfl: ??? amLODIPine (NORVASC) 10 MG tablet, 1 tablet., Disp: , Rfl: ??? atorvastatin (LIPITOR) 80 MG tablet, , Disp: , Rfl: ??? Nulmfnt-Rgvfqqaowac-Efaxgenoqz (Breztri Aerosphere) 160-9-4.8 MCG/ACT aerosol inhaler, Inhale 2puffs Daily., Disp: , Rfl: ??? ibuprofen (ADVIL,MOTRIN) 800 MG tablet, Take 1 tablet by mouth 3 (Three) Times a Day., Disp: , Rfl: ??? lisinopril (PRINIVIL,ZESTRIL) 40 MG tablet, , Disp: , Rfl: ??? tadalafil (CIALIS) 5 MG tablet, Take 1 tablet by mouth Daily., Disp: , Rfl: History reviewed. No pertinent past medical history. Past Surgical History: Procedure Laterality Date ??? LAPAROSCOPIC GASTRIC BANDING removed 5 days ago placed 18 years ago Family History Problem Relation Age of Onset ??? Hyperlipidemia Father ??? Hypertension Father ??? Heart disease Father ??? Heart attack Father ??? Cancer Sister Social History Socioeconomic History ??? Marital status: Tobacco Use ??? Smoking status: Every Day Current packs/day: 0.50 Types: Cigarettes Passive exposure: Current ??? Smokeless tobacco: Never Vaping Use ??? Vaping status: Never Used Substance and Sexual Activity ??? Alcohol use: Never ??? Drug use: Never ??? Sexual activity: Defer Objective Vital Signs: BP 132/72 (BP Location: Right arm, Patient Position: Sitting, Cuff Size: Adult) Pulse 55 Temp 97.6 ??F (36.4 ??C) (Infrared) Ht 180.3 cm (71 ) Wt 91.4 kg (201 lb 9.6 oz) SpO2 99% BMI 28.12 kg/m?? Estimated body mass index is 28.12 kg/m?? as calculated from the following: Height as of this encounter: 180.3 cm (71 ). Weight as of this encounter: 91.4 kg (201 lb 9.6 oz). Physical Exam Constitutional: Appearance: Normal appearance. Cardiovascular: Rate and Rhythm: Regular rhythm. Bradycardia present. Pulses: Normal pulses. Heart sounds: Normal heart sounds. Pulmonary: Effort: Pulmonary effort is normal. Breath sounds: Wheezing present. Musculoskeletal: General: Normal range of motion. Skin: General: Skin is warm and dry. Capillary Refill: Capillary refill takes less than 2 seconds. Neurological: General: No focal deficit present. Mental Status: He is alert and oriented to person, place, and time. Psychiatric: Mood and Affect: Mood normal. Behavior: Behavior normal. Thought Content: Thought content normal. Judgment: Judgment normal. The following data was reviewed by: Portia Nguyen APRN on 12/02/2024: Stress echo has been reviewed. DOT paperwork has been completed and returned to the patient. Assessment and Plan Diagnoses and all orders for this visit: 1. Coronary artery disease involving galena coronary artery of galena heart without angina pectoris(Primary) Assessment & Plan: Coronary artery disease is stable. Continue current treatment regimen. Continue current medications. Cardiac status will be reassessed in 1 year. - Currently stable and asymptomatic. Continue aspirin, atorvastatin and lisinopril current doses 2. Essential hypertension Assessment & Plan: Hypertension is stable and controlled Continue current treatment regimen. Blood pressure will be reassessed in 3 months. Patient to continue his amlodipine and lisinopril for blood pressure control. 3. Hyperlipidemia LDL goal <70 Assessment & Plan: No no current lab work. PCP did not send when requested. Patient to continue his atorvastatin 80 mg. 4. Nonrheumatic aortic valve insufficiency Assessment & Plan: Mild to moderate mitral valve regurgitation noted on echo 11/28/2024. Plan to recheck echo in 1 year. 5. Shortness of breath Assessment & Plan: Patient's significant other reports he is having pursed lip breathing with low O2 sats below 88% aswell as intermittent confusion. She is requesting a referral to pulmonary. Patient has not been diagnosed formally with any type of emphysema, asthma or COPD. Plan PFTs at [facility] to hopefully expedite things for pulmonary doctor. Overnight pulse ox to check for nocturnal desaturations. Pulmonary referral for further evaluation. Orders: - Ambulatory Referral to Pulmonology - ECG 12 Lead - Complete PFT - Pre & Post Bronchodilator; Future - Overnight Sleep Oximetry Study; Future Recommendations: ER if symptoms increase, Report if any new/changing symptoms immediately, and Limit salt Follow Up Return in about 3 months (around 03/04/2025) for Dyspnea on exertion. Patient was given instructions and counseling regarding his condition or for health maintenance advice. Please see specific information pulled into the AVS if appropriate. documented in this encounter Plan of Treatment Upcoming Encounters Date Type Department Care Team (Late st Contact Info) Description 02/16/2025 9:00 AM EDT Registration [facility] [address] [facility] [address] [place] [address] 02/16/2025 9:30 AM EDT Office Visit [facility] [address] [facility] [address] [place] [id number] 02/16/2025 10:00 AM EDT Office Visit [facility] [address] [facility] [address] [place] [address] Fly Kee MD [address] [place] [address] 03/02/2025 9:30 AM EST Office Visit [facility] [address] [place] [address] Portia Nguyen APRN [address] [place] [address] [place] [address] Scheduled Orders Name Type Priority Associated Diagnoses Order Schedule Complete PFT - Pre & Post Bronchodilator PFT Routine Shortness of breath Expected: 12/07/2024, Expires: 03/04/2026 Overnight Sleep Oximetry Study Respiratory Care Routine Shortness of breath Expected: 05/31/2025, Expires: 12/02/2025 Scheduled Referrals Name Type Priority Associated Diagnoses Order Schedule Ambulatory Referral to Pulmonology Outpatient Referral Routine Shortness of breath Ordered: 12/02/2024 documented as of this encounter Procedures Procedure Name Priority Date/Time Associated Diagnosis Comments ECG 12-LEAD Routine 12/02/2024 Shortness of breath documented in this encounter Results * ECG 12 Lead (12/02/2024) Portia Nguyen APRN ECG ORDERABLES Final Result ECG documented in this encounter Visit Diagnoses Diagnosis Coronary artery disease involving galena coronary artery of galena heart without angina pectoris- Primary Essential hypertension Unspecified essential hypertension Hyperlipidemia LDL goal <70 Other and unspecified hyperlipidemia Nonrheumatic aortic valve insufficiency Shortness of breath documented in this encounter Care Teams Epoxy Coatings Installer Relationship Specialty Start Date End Date Siobhan De La Vega PA PCP - General Physician Fish Technologist 12/02/22 documented as of this encounter
--- OUTSIDE RECORDS SUMMARY | 2024-12-20 16:26 | XMS_ITS | Clinical Summary ---
Author Organization [facility] Address [address] [place], [place] [id number] Care Team Providers Care Contract Lead Name Role Phone CucoRubénlandy Mandel AUTOMOTIVE SALES PROFESSIONAL Unavailable [phone] Siobhan De La Vega Primary Care Provider [phone] Allergies No known active allergies Medications amLODIPine (Norvasc) 10 MG tablet 06/03/2022 Active aspirin 81 MG EC tablet 06/03/2022 Active atorvastatin (Lipitor) 80 MG tablet 06/03/2022 Active ibuprofen 800 MG tablet 06/03/2022 Active lisinopril 40 MG tablet 06/03/2022 Active tadalafil (Cialis) 10 MG tablet TAKE 1 TABLET BY MOUTH ONCE DAILY NEEDED FOR SEXUAL ACTIVITY. TAKE 30 MINUTES PRIOR TO NEED. DO NOT USE MORE THAN 1 DAILY. 06/20/2022 Active Social History Tobacco Use Types Packs/Day Years Used Date Smoking Tobacco: Never Smokeless Tobacco: Never Alcohol Use Standard Drinks/Week Comments Never 0 (1 standard drink = 0.6 oz pur e alcohol) Sex and Gender Information Value Date Recorded Sex Assigned at Not on file Legal Sex Male 10:18 AM EST Gender Identity Not on file Sexual Orientation Not on file Last Filed Vital Signs Vital Sign Reading Time Taken Comments Blood Pressure 130/80 07/04/2022 8:14 AM EST Pulse - - Temperature - - Respiratory Rate - - Oxygen Saturation - - Inhaled Oxygen Concentration - - Weight 97.5 kg (215 lb) 07/04/2022 8:14 AM EST Height 180.3 cm (5' 11 ) 07/04/2022 8:14 AM EST Body Mass Index 29.99 07/04/2022 8:14 AM EST Plan of Treatment Health Maintenance Due Date Last Done Comments [facility]-Depression Screening 1960 [facility]-Infant/Child/Adol SDOH Screenings 1960 [facility]- SDOH Screenings 1976 [facility]-Adult SDOH Screenings 1976 [facility]-DTaP,Tdap,and Td Vaccine s (1 - Tdap) 1977 CT Colonography 10/01/2003 Colonoscopy 10/01/2003 FIT-DNA 10/01/2003 FIT 10/01/2003 FOBT 10/01/2003 Sigmoidoscopy 10/01/2003 [facility]-Colorectal Cancer Screening 10/01/2003 [facility]-Pneumococcal Vaccine: 50 + Years (1 of 1 - PCV) 2008 [facility]-Zoster Vaccines (1 of 2) 2008 [id number] Vaccine (2 - 20 24-25 season) 2023 12/04/2020 [facility]-Influenza Vaccine (#1) 2024 03/15/2022 [facility]-RSV Vaccine: 60+ Years o r (1 - 1-dose 75+ series) 2033 HPV Vaccines Aged Out No longer eligi ble based on patient's age to complete this topic [facility]-HIB Vaccines Aged Out No longer e ligible based on patient's age to complete this topic [facility]-Hepatitis A Vaccines Aged Out No longer eligible based on patient's age to complete this topic [facility]-IPV Vaccines Aged Out No longer e ligible based on patient's age to complete this topic [facility]-Rotavirus Vaccines Aged Out No lo nger eligible based on patient's age to complete this topic Insurance [employer] [facility] MEDICAID Care Teams Contract Lead Relationship Specialty Start Date End Date Siobhan De La Vega PA [address] [place] [address] PCP - General 07/04/22 Cami Norwood, AUTOMOTIVE SALES PROFESSIONAL [address] [facility] [address] [place] [id number] Nurse Practitioner Neurosurgery 07/04/22
--- OUTSIDE RECORDS SUMMARY | 2024-12-20 16:26 | XMS_ITS | Clinical Summary ---
Author Organization [facility] Address [address] [place] [address] Care Team Providers Care Merchandise Support Associate Name Role Phone Siobhan De La Vega Primary Care Provider [phone] Allergies No known active allergies Medications atorvastatin (LIPITOR) 80 MG tablet 3 Active lisinopril (PRINIVIL,ZEST RIL) 40 MG tablet 3 Active tadalafil (CIALIS) 5 MG tablet Take 1 tablet by mouth Daily. 3 Active amLODIPine (NORVASC) 10 MG tablet 1 tablet. Active ibuprofen (ADVIL,MOTRIN) 800 MG tablet Take 1 tablet by mouth 3 (Three) Times a Day. Active albuterol sulfate HFA 108 (90 Base) MCG/ACT inhaler Inhale 2 puffs every 4 hours by inhalation route as needed for 30 days, for wheezing/short ness of breath. 5 Active Budeson-Glycop yrrol-Formoter ol (Breztri Aerosphere) 160-9-4.8 MCG/ACT aerosol inhaler Inhale 2 puffs Daily. Active aspirin 81 MG EC tablet Take 1 tablet by mouth Daily. 025 Discontinue d(*Therapy completed) Ozempic, 0.25 or 0.5 MG/DOSE, 2 MG/3ML solution pen-injector 3 025 Discontinue d(Patient Reported Not Taking) Active Problems Problem Noted Date Diagnosed Date Shortness of breath 12/02/2024 Assessment & Plan (12/02/2024 6:48 PM EDT): Patient's significant other reports he is having pursed lip breathing with low O2 sats below 88% as well as intermittent confusion. She is requesting a referral to pulmonary. Patient has not been diagnosed formally with any type of emphysema, asthma or COPD. Plan PFTs at [facility] to hopefully expedite things for pulmonary doctor. Overnight pulse ox to check for nocturnal desaturations. Pulmonary referral for further evaluation. Nonrheumatic aortic valve insufficiency 01/02/20 Assessment & Plan (12/02/2024 6:46 PM EDT): Mild to moderate mitral valve regurgitation noted on echo 11/28/2024. Plan to recheck echo in 1 year. Coronary artery disease invo lving egegik coronary artery of egegik heart without angina pectoris 12/02/2022 Assessment & Plan (12/02/2024 6:50 PM EDT): Coronary artery disease is stable. Continue current treatment regimen. Continue current medications. Cardiac status will be reassessed in 1 year. - Currently stable and asymptomatic. Continue aspirin, atorvastatin and lisinopril current doses Assessment & Plan (12/04/2023 9:48 AM EDT): Coronary artery disease is stable. Continue current treatment regimen. Continue current medications. Cardiac status will be reassessed in 1 year. - Currently stable and asymptomatic. 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 He completed a stress echocardiogram on 12/31/2022 that was low risk with no evidence of ischemia. Echocardiogram completed on 12/15/2022 revealed a normal EF and mild aortic regurgitation. That she is doing very well from a cardiac standpoint. No restrictions. Tobacco use 12/02/2022 Essential hypertension 12/02/2022 Assessment & Plan (12/02/2024 6:44 PM EDT): Hypertension is stable and controlled Continue current treatment regimen. Blood pressure will be reassessed in 3 months. Patient to continue his amlodipine and lisinopril for blood pressure control. Assessment & Plan (12/04/2023 9:49 AM EDT): Hypertension is stable and controlled Continue current treatment regimen. Dietary sodium restriction. Regular aerobic exercise. Blood pressure will be reassessed in 1 year. Type 2 diabetes mellitus wit hout complication, without long-term current use of insulin 12/02/2022 Hyperlipidemia LDL goal <70 12/02/2022 Assessment & Plan (12/02/2024 6:45 PM EDT): No no current lab work. PCP did not send when requested. Patient to continue his atorvastatin 80 mg. Assessment & Plan (12/04/2023 9:49 AM EDT): Most recent labs requested from PCP. LDL goal <70. - Continue atorvastatin 80 mg once daily Encounters Date Type Department Care Team Description 12/02/2024 8:30 AM EDT Office Visit [facility] [address] [address] Portia Nguyen APRN Coronary artery disease involving egegik coronary artery of egegik heart without angina pectoris (Primary Dx); Essential hypertension; Hyperlipidemia LDL goal <70; Nonrheumatic aortic valve insufficiency; Shortness of breath 12/02/2024 Travel 11/28/2024 1:30 PM EDT Ancillary Procedure [facility] [address] [phone] Coronary artery disease involving egegik coronary artery of egegik heart without angina pectoris; Encounter for examination required by Department of Transportation (DOT) 11/28/2024 12:30 PM EDT Ancillary Procedure [facility] [address] [address] Coronary artery disease involving egegik coronary artery of egegik heart without angina pectoris; Encounter for examination required by Department of Transportation (DOT) 11/28/2024 Travel 10/12/2024 Telephone [facility] [address] [address] Marcella Menchaca APRN from Last 3 Months Family History Medical History Relation Name Comments Heart attack Father Heart disease Father Hyperlipidemia Father Hypertension Father Cancer Sister Relation Name Status Comments Brother Father Mother Sister Alive Social History Tobacco Use Types Packs/Day Years Used Date Smoking Tobacco: Every Day Cigarettes Passive Smoke Exposure: Current Smokeless Tobacco: Never Tobacco Cessation:Ready to Q uit: Not Asked; Counseling Given: Not Answered Alcohol Use Standard Drinks/Week Comments Never 0 (1 standard drink = 0.6 oz pur e alcohol) Sex and Gender Information Value Date Recorded Sex Assigned at Male 11/25/2022 5:36 PM EDT Legal Sex Male 9:28 AM EDT Gender Identity Male 11/25/2022 5:36 PM EDT Sexual Orientation Straight 11/25/2022 5: 36 PM EDT Last Filed Vital Signs Vital Sign Reading [...] Mass Index 28.12 12/02/2024 8:33 AM EDT Plan of Treatment Upcoming Encounters Date Type Department Care Team (Late st Contact Info) Description 02/16/2025 9:00 AM EDT Registration [facility] [address] [facility] [address] [place] [address] 02/16/2025 9:30 AM EDT Office Visit [facility] [address] [facility] [address] [place] [address] 02/16/2025 10:00 AM EDT Office Visit [facility] 3000 [facility] [address] [place] [address] Fly Kee MD [address] [place] [address] 03/02/2025 9:30 AM EST Office Visit [facility] [address] [place] [place] [address] Seivers, Portia Guadarrama, NOZZLE TENDER [address] [place] [address] [place] [address] Health Maintenance Due Date Last Done Comments LIPID PANEL 1960 DIABETIC EYE EXAM 1970 URINE MICROALBUMIN-CREATININ E RATIO (uACR) 1968 COLOGUARD 10/01/2003 COLON CANCER SCREENING 5 YEA R SIGMOIDOSCOPY 10/01/2003 CT COLONOGRAPHY 10/01/2003 FECAL OCCULT BLOOD TEST 10/01/2003 FIT Testing (1 year) 10/01/2003 ANNUAL WELLNESS VISIT 12/02/2022 HEMOGLOBIN A1C 12/02/2022 06/22/2018, 11/25/2017 HEPATITIS C SCREENING 12/02/2022 AAA SCREEN ONCE 10/01/2023 COVID-19 Vaccine (3 2023-2 5 season) 2024 02/16/2024, 12/25/2023, 12/04/2020 INFLUENZA VACCINE 01/25/2025 02/16/2024, , 03/30/2023, Additional history exists DIABETIC FOOT EXAM 06/09/2025 06/09/2024, 04/15/2024 Pneumococcal Vaccine 50+ (2 of 2 - PPSV23) 06/09/2025 06/09/2024 TDAP/TD VACCINES (2 - Td or Tdap) 06/09/2034 025, 06/16/2007 COLONOSCOPY 09/26/2034 09/26/2024 COLORECTAL CANCER SCREENING 09/26/2034 ZOSTER VACCINE Completed 03/31/2024, 01/26, 01/14/2024 Procedures Procedure Name Priority Date/Time Associated Diagnosis Comments ECG 12-LEAD Routine 12/02/2024 Shortness of breath SE QUAD ONLY W/ EXERCISE Routine 11/28/2024 2:02 PM EDT Coronary artery disease involving egegik coronary artery of egegik heart without angina pectoris Encounter for examination required by Department of Transportation (DOT) ECHO COMPLETE W/ DOPPLER AND COLOR FLOW Routine 11/28/2024 1:22 PM EDT Coronary artery disease involving egegik coronary artery of egegik heart without angina pectoris Encounter for examination required by Department of Transportation (DOT) from Last 3 Months Results * ECG 12 Lead (12/02/2024) us Portia W Seivers NOZZLE TENDER ECG ORDERABLES Final Result BH ECG * SE QUAD ONLY W/ EXERCISE (11/28/2024 [...] Arrhythmias were not significant during recovery. Test Optimization Analyst ECG [place] Wall Scoring Score Index: 1.00 The left ventricular wall motion is normal. Marcella Menchaca APRN CV ECHO ORDERABLES Final Result * ECHO COMPLETE W/ DOPPLER AND COLOR [...] Menchaca APRN CV ECHO ORDERABLES Final Result from Last 3 Months Insurance MEDICARE A & B Care Teams Merchandise Support Associate Relationship Specialty Start Date End Date Siobhan De La Vega PA PCP - General Physician Science And Operations Officer 12/02/22
--- OUTSIDE RECORDS SUMMARY | 2024-12-20 16:26 | XMS_ITS | Encounter Summary ---
Author Organization [facility] Address [address] [place] [address] Care Team Providers Care Automatic Teller Machine Servicer Name Role Phone Siobhan De La Vega Primary Care Provider [phone] Encounter Details Date Type Department Care Team (Latest Contact Info) Description 12/02/2024 Travel Social History Tobacco Use Types Packs/Day Years [...] PM EDT documented as of this encounter Plan of Treatment Upcoming Encounters Date Type Department Care Team (Late st Contact Info) Description 02/16/2025 9:00 AM EDT Registration [facility] [address] [address] 02/16/2025 9:30 AM EDT Office Visit [facility] [address] [place] [address] 02/16/2025 10:00 AM EDT Office Visit [facility] [address] [place] [address] Fly Kee MD [facility] [place] [id number] 03/02/2025 9:30 AM EST Office Visit [facility] [address] [place] [address] Portia Nguyen, EFFICIENCY MINER [address] [place] [address] documented as of this encounter Visit Diagnoses Not on filedocumented in this encounter Care Teams Automatic Teller Machine Servicer Relationship Specialty Start Date End Date Siobhan De La Vega PA PCP - General Physician Preschool Teacher Assistant 12/02/22 documented as of this encounter
--- OUTSIDE RECORDS SUMMARY | 2024-12-20 16:26 | XMS_ITS | Encounter Summary ---
Author Organization [facility] Address [address] [place] [address] Care Team Providers Care Unhairing Machine Operator Name Role Phone Siobhan De La Vega Primary Care Provider [phone] Encounter Details Date Type Department Care Team (Latest Contact Info) Description 11/28/2024 Travel Social History Tobacco Use Types Packs/Day [...] Info) Description 02/16/2025 9:00 AM EDT Registration [facility] [address] [address] 02/16/2025 9:30 AM EDT Office Visit [facility] 3000 [facility] [address] [place] [address] 02/16/2025 10:00 AM EDT Office Visit [facility] MEDICINE 3000 [facility] [address] [place] [address] Fly Kee MD [facility] [place] [id number] 03/02/2025 9:30 AM EST Office Visit [facility] [address] [place] [address] Portia Nguyen, VOICE SYSTEMS ENGINEER [address] [place] [address] [place] [address] documented as of this encounter Visit Diagnoses Not on filedocumented in this encounter Care Teams Unhairing Machine Operator Relationship Specialty Start Date End Date Siobhan De La Vega PA PCP - General Physician Web Solutions Architect 12/02/22 documented as of this encounter
[2024-12-20 16:53] LABS: Hematocrit 41.0 % (42.0-52.0); Hemoglobin 12.9 g/dL (14.1-18.0); Immature Granulocytes % 0.4 %; Mean Corpuscular HGB Conc 31.5 g/dL (31.8-35.4); Mean Corpuscular Hemoglobin 28.1 pg (27.0-31.2); Mean Corpuscular Volume 89.3 fl (80-94); Nucleated Red Blood Cells % 0 %; Platelet Count 211 K/mm3 (142-424); Red Blood Count 4.59 M/mm3 (4.60-6.20); Red Cell Distribution Width-SD 50.2 fL; White Blood Count 8.3 K/mm3 (4.8-10.8)
[2024-12-20 17:15] LABS: Alanine Aminotransferase 16 U/L (12-78); Albumin Level 4.3 g/dl (3.5-5.0); Albumin/Globulin Ratio 1.8 (1.1-1.8); Alkaline Phosphatase 70 U/L (38-126); Anion Gap 12.6 mEq/L (5-15); Aspartate Amino Transferase 43 U/L (17-59); Bilirubin,Total 0.9 mg/dl (0.2-1.3); Blood Urea Nitrogen 16 mg/dl (9-20); Calcium 9.0 mg/dl (8.4-10.2); Carbon Dioxide 30 mmol/L (22.0-30.0); Chloride 101 mmol/L (98-107); Creatinine,Serum 1.10 mg/dl (0.66-1.25); Estimated Glomerular Filt Rate 67 ml/min (>60); GFR (African American) 81 ML/MIN (>60); Globulin 2.4 g/dL (1.3-3.2); Glucose 83 mg/dl (74-100); Potassium 4.6 mmoL/L (3.5-5.1); Sodium 139 mmol/L (136-145); Total Protein,Serum 6.7 g/dl (6.3-8.2)
[2024-12-20 18:05] LABS: Vitamin B12 423 pg/mL (239-931)
[2024-12-20 18:13] LABS: Thyroid Stimulating Hormone 1.96 uIU/mL (0.465-4.68)
[2024-12-20 18:22] LABS: C-Reactive Protein < 0.3 mg/L (0-4)
[2024-12-20 18:23] LABS: Folate 7.13 ng/mL
[2024-12-21 15:05] LABS: RPR W/RFX Titers Nonreactive (Nonreactive)
[2024-12-22 14:12] LABS: Lyme Ab CIA Positive (Negative); Lyme Ab IgM CIA Negative (Negative)
[2024-12-22 16:12] LABS: Antinuclear Antibodies (ANA) Negative (Negative)
== END 2024-12-20 23:59 | disposition home or self-care (01) ==
LOC: LAB 16:24
PROVIDERS: PCP Physician Assistant; Visit Provider Specialist
DX: R41.3 Other amnesia (principal)
CPT/HCPCS: 36415; 80053; 82607; 82746; 84443; 85025; 85651; 86140; 86592; 86618

== ENCOUNTER 2025-02-06 08:51 | Outpatient (CLI) | payer MEDICARE, SELFPAY ==
--- OUTSIDE RECORDS SUMMARY | 2025-01-02 05:00 | XMS_ITS | Encounter Summary ---
Author Organization [facility] Address [address] [place] [address] Care Team Providers Care Electrical Installation Inspector Name Role Phone Siobhan De La Vega PRINCESS Primary Care Provider [phone] Encounter Details Date Type Department Care Team (Late st Contact Info) Description 01/02/2025 5:00 AM EDT Outside Facility Service [facility] [address] [place] [address] Martha Dickinson MD [address] [place] [address] Social History Tobacco Use Types Packs/Day Years [...] Info) Description 02/16/2025 9:00 AM EDT Registration [facility] 3000 [facility] [address] [place] [address] 02/16/2025 9:30 AM EDT Office Visit [facility] 3000 [facility] [address] [place] [address] 02/16/2025 10:00 AM EDT Office Visit [facility] 3000 [facility] [address] [place] [address] Fly Kee MD [address] [place] [address] 03/02/2025 9:30 AM EST Office Visit [facility] [address] [place] [address] Portia Nguyen, CHERRY [address] [place] [address] [place] [address] documented as of this encounter Visit Diagnoses Not on filedocumented in this encounter Care Teams Electrical Installation Inspector Relationship Specialty Start Date End Date Siobhan De La Vega PA PCP - General Physician Cloth Drier 12/02/22 documented as of this encounter
--- OUTSIDE RECORDS SUMMARY | 2025-02-06 08:57 | XMS_ITS | Clinical Summary ---
Author Organization [facility] Address [address] [place] [address] Care Team Providers Care Headend Technician Name Role Phone Siobhan De La Vega Primary Care Provider [phone] Allergies No known active allergies Medications atorvastatin (LIPITOR) 80 MG tablet 3 Active lisinopril (PRINIVIL,ZESTR IL) 40 MG tablet 3 Active tadalafil (CIALIS) [...] route as needed for 30 days, for wheezing/shortn ess of breath. 5 Active Budeson-Glycopy rrol-Formoterol (Breztri Aerosphere) 160-9-4.8 MCG/ACT aerosol inhaler Inhale 2 puffs Daily. Active Active Problems Problem Noted Date Diagnosed Date Shortness of breath 12/02/2024 Assessment & Plan (12/02/2024 6:48 PM EDT): Patient's significant other reports he is having pursed lip breathing with low O2 sats below 88% as well as intermittent confusion. She is requesting a referral to pulmonary. Patient has not been diagnosed formally with any type of emphysema, asthma or COPD. Plan PFTs at [facility] to hopefully expedite things for pulmonary doctor. Overnight pulse ox to check for nocturnal desaturations. Pulmonary referral for further evaluation. Nonrheumatic aortic valve insufficiency 01/02/20 Assessment & Plan (12/02/2024 6:46 PM EDT): Mild to moderate mitral valve regurgitation noted on echo 11/28/2024. Plan to recheck echo in 1 year. Coronary artery disease invo lving craig coronary artery of craig heart without angina pectoris 12/02/2022 Assessment & [...] Assessment & Plan (12/04/2023 9:48 AM EDT): [facility] DOT providers require updated stress test and [...] Encounters Date Type Department Care Team Description 01/04/2025 Telephone [facility] [address] [place] [address] Portia Nguyen APRN 01/02/2025 5:00 AM EDT Outside Facility Service [facility] [address] [address] Martha Dickinson MD 01/02/2025 Results Follow-Up [facility] [address] [place] [address] Kristin Cazares RN 12/02/2024 8:30 AM EDT Office Visit [facility] [address] [place] [address] Portia Nguyen, NURSE MONITORING Coronary artery disease involving craig coronary artery of craig heart without angina pectoris (Primary Dx); Essential hypertension; Hyperlipidemia LDL goal <70; Nonrheumatic aortic valve insufficiency; Shortness of breath 12/02/2024 Travel 11/28/2024 1:30 PM EDT Ancillary Procedure [facility] [address] [place] [address] Coronary artery disease involving craig coronary artery of craig heart without angina pectoris; Encounter for examination required by Department of Transportation (DOT) 11/28/2024 12:30 PM EDT Ancillary Procedure [facility] [address] [place] [address] Coronary artery disease involving craig coronary artery of craig heart without angina pectoris; Encounter for examination required by Department of Transportation (DOT) 11/28/2024 Travel from Last 3 Months Family History Medical [...] Info) Description 02/16/2025 9:00 AM EDT Registration [facility] 3000 [facility] [address] [place] [address] 02/16/2025 9:30 AM EDT Office Visit [facility] [address] [facility] [address] [place] [address] 02/16/2025 10:00 AM EDT Office Visit [facility] [address] [facility] [address] [place] [address] Fly Kee MD [address] [place] [address] 03/02/2025 9:30 AM EST Office Visit [facility] [address] [place] [address] Sefrandy, Portia Guadarrama, NURSE MONITORING [address] [place] [address] [place] [address] Health Maintenance Due Date Last Done Comments LIPID PANEL 1960 DIABETIC EYE EXAM 1970 URINE MICROALBUMIN-CREATININ E RATIO (uACR) 1970 COLOGUARD 10/01/2003 COLON CANCER SCREENING 5 YEA R SIGMOIDOSCOPY 10/01/2003 CT COLONOGRAPHY 10/01/2003 FECAL OCCULT BLOOD TEST 10/01/2003 FIT Testing (1 year) 10/01/2003 ANNUAL WELLNESS VISIT 12/02/2022 HEMOGLOBIN A1C 12/02/2022 06/22/2018, 11/25/2017 HEPATITIS C SCREENING 12/02/2022 AAA SCREEN ONCE 10/01/2023 INFLUENZA VACCINE 11/25/2024 02/16/2024, , 03/30/2023, Additional history exists COVID-19 Vaccine (3 - 2023-2 5 season) 2024 02/16/2024, 12/25/2023, 12/04/2020 DIABETIC FOOT EXAM 06/09/2025 06/09/2024, 04/15/2024 Pneumococcal Vaccine 50+ (2 of 2 - PPSV23) 06/09/2025 06/09/2024 TDAP/TD VACCINES (2 - Td or Tdap) 06/09/2034 025, 06/16/2007 COLONOSCOPY 09/26/2034 09/26/2024 COLORECTAL CANCER SCREENING 09/26/2034 ZOSTER VACCINE Completed 03/31/2024, 01/26, 01/14/2024 Procedures Procedure Name Priority Date/Time Associated Diagnosis Comments SCANNED - PULMONARY RESULTS 01/02/2025 PULSE OXIMETRY, OVERNIGHT Routine 01/02/2025 Shortness of breath PULMONARY FUNCTION TEST Routine 12/13/2024 Shortness of breath ECG 12-LEAD Routine 12/02/2024 Shortness of breath SE QUAD ONLY W/ EXERCISE Routine 11/28/2024 2:02 PM EDT Coronary artery disease involving craig coronary artery of craig heart without angina pectoris Encounter for examination required by Department of Transportation (DOT) ECHO COMPLETE W/ DOPPLER AND COLOR FLOW Routine 11/28/2024 1:22 PM EDT Coronary artery disease involving craig coronary artery of craig heart without angina pectoris Encounter for examination required by Department of Transportation (DOT) from Last 3 Months Results * Pulmonary Results Scan (01/02/2025) us Portia W Seivers NURSE MONITORING PFT ORDERABLES Final Result * Overnight Sleep Oximetry Study (01/02/2025) us Portia W Seivers NURSE MONITORING RESPIRATORY CARE ORDERABLES Final Result * Complete PFT - Pre & Post Bronchodilator (12/13/2024) us Portia W Seivers NURSE MONITORING PFT ORDERABLES Final Result * ECG 12 Lead (12/02/2024) us Portia W Seivers NURSE MONITORING ECG ORDERABLES Final Result ECG * SE QUAD ONLY W/ EXERCISE [...] Arrhythmias were not significant during recovery. Test Logistics Analytics Manager ECG [place] Wall Scoring Score Index: 1.00 The left ventricular wall motion is normal. Marcella Menchaca APRN CV ECHO ORDERABLES Final Result * ECHO COMPLETE W/ DOPPLER AND COLOR FLOW (11/28/2024 1:22 PM EDT) [facility] EF(MOD-bp) 59.7 % LV GLOBAL STRAIN -20.5 [...] Insurance MEDICARE A & B Care Teams Headend Technician Relationship Specialty Start Date End Date Siobhan De La Vega PA PCP - General Physician Vehicle Fare Collector 12/02/22
--- OUTSIDE RECORDS SUMMARY | 2025-02-06 08:57 | XMS_ITS | Clinical Summary ---
Author Organization [facility] Address [address] [place], [place] [address] Care Team Providers Care Weigh Machine Operator Name Role Phone CucoRubénlandy Mandel FENCE MACHINE OPERATOR Unavailable [phone] Siobhan De La Vega Primary Care Provider [phone] Allergies No known active allergies Medications amLODIPine [...] 2008 [facility]-Zoster Vaccines (1 of 2) 2008 [id number] Vaccine (2 - 20 25-26 season) 2024 12/04/2020 [facility]-Influenza Vaccine (#1) 2024 03/15/2022 [facility]-RSV [...] patient's age to complete this topic Insurance [facility] MEDICAID Care Teams Weigh Machine Operator Relationship Specialty Start Date End Date Siobhan De La Vega PA [address] [place] [address] PCP - General 07/04/22 Cami Norwood, FENCE MACHINE OPERATOR [address] [facility] [address] [place] [id number] Nurse Practitioner Neurosurgery 07/04/22
--- OUTSIDE RECORDS SUMMARY | 2025-02-06 08:57 | XMS_ITS | Encounter Summary ---
Author Organization [facility] ([place], [place], [place], [place]) Address [address] [place] [address] Care Team Providers Care Supervisor Mails Name Role Phone Siobhan De La Vega PA-C Primary Care Provider [phone] Encounter Details Date Type Department Care Team (Latest Contact Info) Description 01/12/2025 Travel Social History Tobacco Use Types Packs/Day Years Used Date Smoking Tobacco: Never Assessed Sex and Gender Information Value Date Recorded Sex Assigned at Not on file Legal Sex Male 8:07 AM CDT Gender Identity Not on file Sexual Orientation Not on file documented as of this encounter Plan of Treatment Not on file documented as of this encounter Visit Diagnoses Not on filedocumented in this encounter Care Teams Supervisor Mails Relationship Specialty Start Date End Date Siobhan De La Vega PA-C [address] [place] [address] PCP - General Physician Media Marketing Coordinator 01/12/25 documented as of this encounter
--- OUTSIDE RECORDS SUMMARY | 2025-02-06 08:57 | XMS_ITS | Encounter Summary ---
Author Organization [employer] ([place], [place], [place], [place]) Address [address] [place] [address] Care Team Providers Care Hide And Skin Colerer Name Role Phone Siobhan De La Vega PA-C Primary Care Provider [phone] Reason for Referral * Consultation (Routine) - Closed Specialty Diagnoses / Procedures Referred By Contreno t Referred To Contact Behavioral Health Diagnoses Memory loss Janell Lord [address] [place] [address] Phone: tel: Ciara Hughes, [place] [address] [place] [address] Phone: tel: fax: Referral ID Status Reason Start Date Expiration Date V isits Requested Visits Authorized [id number] Closed Specialty Services Required 12/22/2024 12/22/2025 1 1 Encounter Details Date Type Department Care Team (Late st Contact Info) Description 12/22/2024 Outside Orders [facility] Central Scheduling [address] [place] [address] Janell [place] [address] Memory loss (Primary Dx) Social History Tobacco Use Types Packs/Day Years Used Date Smoking Tobacco: Never Assessed Sex and Gender Information Value Date Recorded Sex Assigned at Not on file Legal Sex Male 8:07 AM CDT Gender Identity Not on file Sexual Orientation Not on file documented as of this encounter Plan of Treatment Scheduled Referrals Name Type Priority Associated Diagnoses Order Schedule Ambulatory referral to Behavioral Health Outpatient Referral Routine Memory loss Expected: 12/22/2024, Expires: 12/22/2025 documented as of this encounter Visit Diagnoses Diagnosis Memory loss- Primary documented in this encounter Care Teams Hide And Skin Colerer Relationship Specialty Start Date End Date Siobhan De La Vega PA-C [address] [place] [address] PCP - General Physician Steel Buffer 01/12/25 documented as of this encounter
--- OUTSIDE RECORDS SUMMARY | 2025-02-06 08:57 | XMS_ITS | Encounter Summary ---
Author Organization [facility] Address [address] [place] [address] Care Team Providers Care Warrant Server Name Role Phone Siobhan De La Vega Primary Care Provider [phone] Encounter Details Date Type Department Care Team (Late st Contact Info) Description 01/02/2025 Results Follow-Up [facility] CARDIOLOGY [address] [place] [address] Porsche Cazares RN Social History Tobacco Use Types Packs/Day Years [...] PM EDT documented as of this encounter Miscellaneous Notes * Telephone Encounter - Emilie Delvalle MA - 01/04/2025 8:46 AM EDT Spoke to patient, patient understood. * Telephone Encounter - Emilie Delvalle MA - 01/04/2025 8:46 AM EDT ----- Message from Portia Nguyen sent at 01/03/2025 12:00 PM EDT ----- Please call patient and let him know I have reviewed his overnight oxygen test and this came back normal. ----- Message ----- From: Interface, Crystal Incoming Sent: 01/03/2025 11:10 AM EDT To: Portia Nguyen APRN * Telephone Encounter - Emilie Delvalle MA - 01/04/2025 8:38 AM EDT LVM for patient to return call for study results. * Telephone Encounter - Emilie Delvalle MA - 01/04/2025 8:38 AM EDT ----- Message from Portia Nguyen sent at 01/03/2025 12:00 PM EDT ----- Please call patient and let him know I have reviewed his overnight oxygen test and this came back normal. ----- Message ----- From: Crystal Randolph Incoming Sent: 01/03/2025 11:10 AM EDT To: Portia Nguyen APRN * Telephone Encounter - Emilie Delvalle MA - 01/03/2025 12:18 PM EDT Called patient he was unavailable at the moment and will call back in a few. * Telephone Encounter - Emilie Delvalle MA - 01/03/2025 12:18 PM EDT ----- Message from Portia Nguyen sent at 01/03/2025 12:00 PM EDT ----- Please call patient and let him know I have reviewed his overnight oxygen test and this came back normal. ----- Message ----- From: Crystal Randolph Incoming Sent: 01/03/2025 11:10 AM EDT To: Portia Nguyen APRN * Telephone Encounter - Maria M Obrien RegSched Rep - 01/02/2025 3:03 PM EDT Caller: Randolph Carver Relationship: Self Best call back number: [phone] What is the best time to reach you: ANY Who are you requesting to speak with (clinical staff, provider, specific staff member): CLINICAL Do you know the name of the person who called: PORSCHE Saleh What was the call regarding: PATIENT IS RETURNING A MISSED CALL FROM PORSCHE MILLAN WARM [place]. Is it okay if the provider responds through MyChart: CALL documented in this encounter Plan of Treatment Upcoming Encounters Date Type Department Care Team (Late st Contact Info) Description 02/16/2025 9:00 AM EDT Registration [facility] PULMONARY & CRITICAL CARE MEDICINE [address] [place] [phone] 02/16/2025 9:30 AM EDT Office Visit [facility] PULMON[facility] CRITICAL CARE MEDICINE [address] [place] [phone] 02/16/2025 10:00 AM EDT Office Visit [facility] PULMONARY & CRITICAL CARE MEDICINE [address] [phone] Fly Kee MD [address] [place] [address] 03/02/2025 9:30 AM EST Office Visit [facility] CARDIOLOGY [address] [place] [address] Portia Nguyen APRN [address] [place] [address] [place] [address] documented as of this encounter Visit Diagnoses Not on filedocumented in this encounter Care Teams Warrant Server Relationship Specialty Start Date End Date Siobhan De La Vega PA PCP - General Physician Manager Sql 12/02/22 documented as of this encounter
--- OUTSIDE RECORDS SUMMARY | 2025-02-06 08:57 | XMS_ITS | Referral Summary ---
Author Organization [employer] ([place], [place], [place], [place]) Address [address] [place] [address] Care Team Providers Care Cardiology Manager Name Role Phone Siobhan De La Vega PA-C Primary Care Provider [phone] Encounters * This document contains information received from the source organization and may not represent a complete record from that organization. Date Type Department Care Team Description 01/12/2025 Travel 12/22/2024 Outside Orders [facility] Central Scheduling [address] [place] [phone] Janell Lord Memory loss (Primary Dx) from Last 3 Months Social History Tobacco Use Types Packs/Day Years Used Date Smoking Tobacco: Never Assessed Sex and Gender Information Value Date Recorded Sex Assigned at Not on file Legal Sex Male 8:07 AM CDT Gender Identity Not on file Sexual Orientation Not on file Plan of Treatment Not on file Insurance MEDICARE PART A B Care Teams Cardiology Manager Relationship Specialty Start Date End Date Siobhan De La Vega PA-C [address] [place] [address] PCP - General Physician Surgical Scrub Technician 01/12/25
--- OUTSIDE RECORDS SUMMARY | 2025-02-06 08:57 | XMS_ITS | Clinical Summary ---
Author Organization [employer] ([place], [place], [place], [place]) Address [address] [place] [address] Care Team Providers Care Sample Shoe Inspector And Reworker Name Role Phone Siobhan De La Vega PA-C Primary Care Provider [phone] Encounters * This document contains information received from the source organization and may not represent a complete record from that organization. 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 Social History Tobacco Use Types Packs/Day Years Used Date Smoking Tobacco: Never Assessed Sex and Gender Information Value Date Recorded Sex Assigned at Not on file Legal Sex Male 8:07 AM CDT Gender Identity Not on file Sexual Orientation Not on file Plan of Treatment Health Maintenance Due Date Last Done Comments CT Colonography 1958 Colonoscopy 1958 Colorectal Cancer Screening 1958 FOBT/FIT 1958 Fit-DNA (Cologuard) 1958 Sigmoidoscopy 1958 Depression Screening (12+) 1970 Tobacco Cessation Counseling and Screening (12+) 1970 Hepatitis C Screening 1976 Falls Risk Screening 04/27/2024 Influenza Vaccine (#1) 2024 12/25/2023, 2021 Medicare IPPE (Welcome to [place] lexi) [id number] 12/26/2024 Pneumococcal 50+ years (2 of 2 - PPSV23) 06/09/2025 06/09/2024 Respiratory Syncytial Virus (RSV) Adult or (1 - 1-dose 75+ series) 2033 DTAP/TDAP/TD VACCINES (2 - T d or Tdap) 06/09/2034 06/09/2024 COVID-19 VACCINE Completed 02/16/2024, , 12/04/2020 Shingles Vaccine (Zoster) Completed 2023, 02/16/2024, 01/14/2024 Insurance MEDICARE PART A B Care Teams Sample Shoe Inspector And Reworker Relationship Specialty Start Date End Date Siobhan De La Vega PA-C [address] [place] [address] PCP - General Physician Lung Puller 01/12/25
--- OUTSIDE RECORDS SUMMARY | 2025-02-06 08:58 | XMS_ITS | Encounter Summary ---
Author Organization [facility] Address [address] [place] [address] Care Team Providers Care Pigment Pumper Name Role Phone Siobhan De La Vega Primary Care Provider [phone] Encounter Details Date Type Department Care Team (Late st Contact Info) Description 01/04/2025 Telephone [facility] CARDIOLOGY [address] [place] [phone] Portia Nguyen, MAINFRAME DEVELOPER [address] [place] [address] [place] [address] Social History Tobacco Use Types [...] encounter Miscellaneous Notes * Telephone Encounter - Artur Delvalle MA - 01/04/2025 8:47 AM EDT Spoke to patient, see previous encounter. * Telephone Encounter - Maria M Obrien RegSched Rep - 01/04/2025 8:42 AM EDT Caller: Randolph Carver Relationship: Self Best call back number: [phone] What is the best time to reach you: ANY Who are you requesting to speak with (clinical staff, provider, specific staff member): CLINICAL Do you know the name of the person who called: ARTUR What was the call regarding: PATIENT IS RETURNING A MISSED CALL FROM ARTUR. HUB WARM TRANSFERRED. Is it okay if the provider responds through MyChart: CALL documented in this encounter Plan of Treatment Upcoming Encounters Date Type Department Care Team (Late st Contact Info) Description 02/16/2025 9:00 AM EDT Registration [facility] PULMONARY & CRITICAL CARE MEDICINE [address] [place] [phone] 02/16/2025 9:30 AM EDT Office Visit [facility] PULMONARY & CRITICAL CARE MEDICINE [address] [place] [phone] 02/16/2025 10:00 AM EDT Office Visit [facility] PULMONARY & CRITICAL CARE MEDICINE [address] [place] [phone] Fly Kee MD [address] [place] [phone] 03/02/2025 9:30 AM EST Office Visit [facility] CARDIOLOGY [address] [place] [address] Portia Nguyen, MAINFRAME DEVELOPER [address] [place] [address] [place] [address] documented as of this encounter Visit Diagnoses Not on filedocumented in this encounter Care Teams Pigment Pumper Relationship Specialty Start Date End Date Siobhan De La Vega PA PCP - General Physician Pawn Broker 12/02/22 documented as of this encounter
[2025-02-09 09:24] LABS: Lyme B. burgdorferi PCR Blood Negative (Negative)
== END 2025-02-06 23:59 | disposition home or self-care (01) ==
LOC: LAB 08:52
PROVIDERS: PCP Physician Assistant; Visit Provider Specialist
DX: G93.49 Other encephalopathy (principal); Z86.19 Personal history of other infectious and parasitic diseases
CPT/HCPCS: 36415; 85651; 87476